=== PATIENT | female | born 1980 | race Caucasian/White ===

== ENCOUNTER 2023-05-11 17:17 | Emergency (ER) | payer OTHER, SELFPAY ==
[2023-05-11 17:47] VITALS: BP 132/84; PULSE 83; RESP 18; TEMP 36.8; O2SAT 97; BMI 32.6
--- NOTE | 2023-05-11 18:35 | CRLHL7_ITS ---
For Patients: As a result of the Century Cures Act, medical imaging exams and procedure reports are released immediately into your electronic medical record. You may view this report before your referring provider. If you have questions, please contact your health care provider. INDICATION: Cough, possible pneumonia. TECHNIQUE: CT of the chest without IV contrast. Coronal and sagittal reconstructions. COMPARISON: None. FINDINGS: Normal heart size. Normal caliber thoracic aorta and central pulmonary arteries. No pericardial effusion. No thoracic lymphadenopathy. The imaged thyroid gland is normal in appearance. There are nodular ground-glass opacities in the upper lobes and left lower lobe which are likely infectious or inflammatory. Mild diffuse bronchial wall thickening. No central endobronchial lesion. No dense consolidation. No pleural effusion or pneumothorax. 4 mm solid noncalcified pulmonary nodule in the anterior left upper lobe (series 3, image 26). Cholelithiasis. The visualized upper abdomen is otherwise unremarkable. Mild degenerative changes in the lower thoracic spine. Sclerotic lesion in the T9 vertebral body likely represents a bone island. IMPRESSION: 1. Bilateral nodular ground-glass opacities are likely infectious or inflammatory. Mild diffuse bronchial wall thickening. 2. 4 mm noncalcified pulmonary nodule in the left upper lobe. Please see follow-up guidelines below. 3. Cholelithiasis. [employer]LE[employer] GUIDELINES - SOLID NODULES: : SINGLE LOW RISK - nodule less than 6 mm: No routine follow-up. - nodule 6-8 mm: CT at 6-12 months, then consider CT at 18-24 months. - nodule greater than 8 mm: Consider CT at 3 months, PET/CT or tissue sampling. SINGLE HIGH RISK - nodule less than 6 mm: Optional CT at 12 months. - nodule 6-8 mm: CT at 6-12 months, then CT at 18-24 months. - nodule greater than 8 mm: Consider CT at 3 months, PET/CT or tissue sampling. Please note that all CT scans at this facility use dose modulation, iterative reconstruction, and/or weight-based dosing when appropriate to reduce radiation dose to as low as reasonably achievable. Dictated by Prudence Wilson MD @ 05/11/2023 8:03:18 PM (Electronically Signed)
--- NOTE | 2023-05-11 18:38 | ED_ITS ---
HPI - General Adult General Date Seen: 05/11/23 Chief complaint: Shortness of Breath/Dyspnea Stated complaint: pneumonia x3 weeks Time Seen by Provider: 05/11/23 18:22 Source: patient Mode of arrival: ambulatory Limitations: no limitations History of Present Illness HPI narrative: Patient is a 42-year-old female with no pertinent medical history for cough, chest pain, shortness of breath the past 3 weeks. She states 3 weeks of dizziness a diagnosis of pneumonia is started on antibiotic. She is not sure which antibiotic it was. Week ago she went to urgent care and was started on albuterol, prednisone, doxycycline. So week later notes symptoms are not getting better. She states she still coughing up green mucus in will cough so much it causes her to be incontinent of urine. States this does make it difficult for her to do her job. She has not been using any cough suppressants. Denies fevers, chills, abdominal pain, nausea, headache, vision changes, lightheadedness, dizziness. Does admit to some midsternal chest pain. Related Data Previous Rx's Medication Instructions Recorded dextromethorphan-benzocaine 5 2 sharath PO Q4H PRN #16 ea 05/11/23 mg-7.5 mg lozenges Allergies Allergy/AdvReac Type Severity Reaction Status Date / Time Penicillins Allergy Mild upset Verified 05/11/23 17:53 stomach Exam Const: Vital Signs, click to edit/add: Vital Signs - 24 hr 05/11/23 17:47 Temperature 98.2 F Pulse Rate [Pulse Oximeter] 83 Respiratory Rate 18 Blood Pressure [Ri ght Upper Arm] 132/84 Pulse Oximetry 97 Oxygen Delivery Me thod Room Air Course Vital Signs Vital signs: Initial Vital Signs Temperature 98.2 F 05/11/23 17:47 Temperature Source Temporal Artery Scan 05/11/23 17:47 Pulse Rate 83 05/11/23 17:47 Respiratory Rate 18 05/11/23 17:47 Blood Pressure 132/84 05/11/23 17:47 Blood Pressure Mean 100 05/11/23 17:47 Blood Pressure Position Sitting 05/11/23 17:47 Pulse Oximetry 97 05/11/23 17:47 Oxygen Delivery Method Room Air 05/11/23 17:47 Vital Signs Temperature 98.2 F 05/11/23 17:47 Pulse Rate 83 05/11/23 17:47 Respiratory Rate 18 05/11/23 17:47 Blood Pressure 132/84 05/11/23 17:47 Pulse Oximetry 97 05/11/23 17:47 Oxygen Delivery Method Room Air 05/11/23 17:47 Temperature 98.2 F 05/11/23 17:47 Pulse Rate 83 05/11/23 17:47 Respiratory Rate 18 05/11/23 17:47 Blood Pressure 132/84 05/11/23 17:47 Pulse Oximetry 97 05/11/23 17:47 Oxygen Delivery Method Room Air 05/11/23 17:47 Medical Decision Making MDM Narrative Medical decision making narrative: Patient is a 42-year-old female presented emergency department for a cough short ness of breath has been going on for about 3 weeks now. She has been told previously she had pneumonia week ago she had another x-ray shortness she still has pneumonia. She is on 2 different antibiotics, prednisone, breathing treatments on improvement in her symptoms. She states sometimes she coughs so much he causes incontinence. Just for better evaluation we will do a CT scan of her chest. She is PERC negative and symptoms are unlikely to be related to a pulmonary embolism. Also ordered BMP, CBC, troponin, echo versus flu. COVID and flu negative. BMP showed no concerning abnormalities. Troponin within normal limits. CBC did show an elevated white count of 15.6. This could be stress reaction versus infection. CT scan results showed what appeared to be infection versus inflammatory areas in her chest. Considering her history and coughing up green sputum this is most likely infectious in nature. We will put her on a stronger antibiotic and started on Levaquin. Patient also was given some cough suppressants. She will be discharged home and she is agreeable to this plan. Lab Data Labs: Lab Results 05/11/23 05/11/23 Range/Units 18:55 18:55 WBC 15.63 H (4.50-11.00) K/uL RBC 4.65 (4.00-5.20) m/uL Hgb 13.7 (12.0-16.0) gm/dL Hct 41.6 (33.0-51.0) % MCV 90 (80-100) fL MCH 30 (26-34) pg MCHC 33 (32-36) gm/dL RDW Coeff of Chadwick 12.0 (11.5-15.5) % Plt Count 546 H (140-440) K/uL Neut % (Auto) 66.9 (42.0-72.0) % Lymph % (Auto) 21.9 (20-44) % [place] % (Auto) 8.4 (0.0-11.0) % Eos % (Auto) 1.2 (0.0-7.0) % Baso % (Auto) 0.3 (0.0-3.0) % Neut # (Auto) 10.50 H (1.7-7.0) K/uL Lymph # (Auto) 3.40 H (0.90-2.90) K/uL [place] # (Auto) 1.30 H (0.00-0.90) K/UL Eos # (Auto) 0.20 (0.00-0.50) K/uL Baso # (Auto) 0.00 (0.00-0.30) K/uL Abs Immat Gran (auto) 0.20 (0.00-0.30) K/uL Imm/Tot Granulo (auto) 1.3 % Sodium 142 (135-149) mmol/L Potassium 3.9 (3.6-5.1) mmol/L Chloride 101 (96-114) mmol/L Carbon Dioxide 31 (20-32) mmol/L Anion Gap 10 (7-15) mEq/L BUN 24 (5-24) mg/dL Creatinine 0.8 (0.5-1.5) mg/dL Estimated Creat Clear 80.72 Estimated GFR 95 ml/min Glucose 116 H (60-115) mg/dL Calcium 10.3 (8.4-10.6) mg/dL Troponin I < 0.01 L Cancelled (0.01-0.04) ng/mL SARS-CoV-2 (PCR) Negative SARS-CoV-2 (Negative) Influenza Type A (PCR) Negative PCR FLU A (Negative) Influenza Type B (PCR) Negative PCR FLU B (Negative) Imaging Data CT scan - chest: Radiologist's impression: INDICATION: Cough, possible pneumonia. TECHNIQUE: CT of the chest without IV contrast. Coronal and sagittal reconstructions. COMPARISON: None. FINDINGS: Normal heart size. Normal caliber thoracic aorta and central pulmonary arteries. No pericardial effusion. No thoracic lymphadenopathy. The imaged thyroid gland is normal in appearance. There are nodular ground-glass opacities in the upper lobes and left lower lobe which are likely infectious or inflammatory. Mild diffuse bronchial wall thickening. No central endobronchial lesion. No dense consolidation. No pleural effusion or pneumothorax. 4 mm solid noncalcified pulmonary nodule in the anterior left upper lobe (series 3, image 26). Cholelithiasis. The visualized upper abdomen is otherwise unremarkable. Mild degenerative changes in the lower thoracic spine. Sclerotic lesion in the T9 vertebral body likely represents a bone island. IMPRESSION: 1. Bilateral nodular ground-glass opacities are likely infectious or inflammatory. Mild diffuse bronchial wall thickening. 2. 4 mm noncalcified pulmonary nodule in the left upper lobe. Please see follow-up guidelines below. 3. Cholelithiasis. [employer] GUIDELINES - SOLID NODULES: : SINGLE LOW RISK - nodule less than 6 mm: No routine follow-up. - nodule 6-8 mm: CT at 6-12 months, then consider CT at 18-24 months. - nodule greater than 8 mm: Consider CT at 3 months, PET/CT or tissue sampling. SINGLE HIGH RISK - nodule less than 6 mm: Optional CT at 12 months. - nodule 6-8 mm: CT at 6-12 months, then CT at 18-24 months. - nodule greater than 8 mm: Consider CT at 3 months, PET/CT or tissue sampling. Please note that all CT scans at this facility use dose modulation, iterative reconstruction, and/or weight-based dosing when appropriate to reduce radiation dose to as low as reasonably achievable. Dictated by Prudence Wilson MD @ 05/11/2023 8:03:18 PM Discharge Plan Discharge Clinical Impression: Pneumonia Qualifiers: Pneumonia type: due to unspecified organism Laterality: bilateral Lung location: unspecified part of lung Qualified Code(s): J18.9 - Pneumonia, unspecified organism Patient Disposition: Home, Self-Care Condition: Stable Instructions: Community Acquired Pneumonia (DC) Additional Instructions: The CT scan shows possible signs of pneumonia. Due to that I will put you on a stronger antibiotic. We will also give new medicine for your cough. I believe part of the reason your cough and some much is clear lungs are slowly healing. Follow-up with the primary care provider if symptoms persist. Your antibiotics to be at [facility]. Prescriptions: New dextromethorphan-benzocaine 5-7.5 mg lozenge 2 sharath PO Q4H PRNQty: 16 0RF Rx Instructions: dissolve 2nd lozenge after first; do not chew Follow Up/Referrals: Provider,Not a Local [Primary Care Provider] - Stand Alone Forms: [employer] Info Instructions
[2023-05-11 18:59] LABS: Basophils Percent Auto 0.3 % (0.0-3.0); Eosinophils Percent Auto 1.2 % (0.0-7.0); Hematocrit 41.6 % (33.0-51.0); Hemoglobin* 13.7 gm/dL (12.0-16.0); Immature Granulocytes Pct Auto 1.3 %; Lymphocytes Percent Auto 21.9 % (20-44); Mean Corpuscular HGB Conc 33 gm/dL (32-36); Mean Corpuscular Hemoglobin 30 pg (26-34); Mean Corpuscular Volume 90 fL (80-100); Monocytes Percent Auto 8.4 % (0.0-11.0); Neutrophils Percent Auto 66.9 % (42.0-72.0); Platelet Count* 546 K/uL (140-440); Red Blood Count 4.65 m/uL (4.00-5.20); White Blood Count* 15.63 K/uL (4.50-11.00)
[2023-05-11 19:01] LABS: Slide Review Reflex No
[2023-05-11 19:13] LABS: Chloride* 101 mmol/L (96-114); Potassium* 3.9 mmol/L (3.6-5.1); Sodium* 142 mmol/L (135-149)
[2023-05-11 19:16] LABS: Anion Gap 10 mEq/L (7-15); Blood Urea Nitrogen* 24 mg/dL (5-24); Carbon Dioxide* 31 mmol/L (20-32); Creatinine* 0.8 mg/dL (0.5-1.5); Est. Creatinine Clearance* 80.72; Estimated Glomerular Filt Rate 95 ml/min; Glucose* 116 mg/dL (60-115)
[2023-05-11 19:17] LABS: Calcium* 10.3 mg/dL (8.4-10.6)
[2023-05-11 19:33] LABS: Troponin I* < 0.01 ng/mL (0.01-0.04)
[2023-05-11 19:36] LABS: PCR FLU A Negative PCR FLU A (Negative); PCR FLU B Negative PCR FLU B (Negative)
[2023-05-11 19:42] LABS: SARS PCR* Negative SARS-CoV-2 (Negative)
== END 2023-05-11 20:27 | disposition home or self-care (01) ==
PROVIDERS: Emergency Provider Student in an Organized Health Care Education/Training Program
DX: J18.9 Pneumonia, unspecified organism (principal)
CPT/HCPCS: 36415; 71250; 80048; 84484; 85025; 87631; 93005; 99283; 99284; 99285

== ENCOUNTER 2023-11-17 08:56 | Emergency (ER) | payer OTHER, SELFPAY ==
[2023-11-17 09:00] VITALS: BP 159/100; PULSE 70; RESP 20; TEMP 35.5; O2SAT 99; BMI 33.5
--- NOTE | 2023-11-17 09:41 | ED.GENADULT ---
HPI - General Adult General Date Seen: 11/17/23 Chief complaint: Abdominal Pain Stated complaint: poss kidney stones Time Seen by Provider: 11/17/23 09:36 History of Present Illness HPI narrative: 43-year-old female with history of kidney stones presenting to the ER today with left lower quadrant radiating to her low back. Pain began last night. Hip pain got worse this morning. She took an oxycodone (or possibly hydrocodone?) that she had at home at about 730 but has not helped her pain. Also noted some darkish color of her urine (devi colored) that may have been hematuria. She has a history of previous kidney stones and did require lithotripsy for 1 of them. She has also had uterine ablation (so does not get menstrual cycle). Her symptoms began overnight last night and have gotten dramatically worse this morning. She took pain meds but they are not helping. She is having increasing flares and waves of pain. They are mostly in the left pelvis but a little bit to the left flank. No other symptoms. No dysuria or urgency or frequency. No fever or chills. She does not think she is but did not get a menstrual cycle because of the uterine ablation. No pain radiating down her leg. She vomited once (nonbloody) after she arrived here in the ER, because of severe pain. Related Data Home Medications Medication Instructions Recorded Confirmed Viibryd 11/17/23 Vyvanse 11/17/23 doxycycline 11/17/23 lamotrigine 11/17/23 Previous Rx's Medication Instructions Recorded dextromethorphan-benzocaine 5 2 sharath PO Q4H PRN #16 ea 05/11/23 mg-7.5 mg lozenges tamsulosin 0.4 mg capsule (Flomax) 0.4 mg PO DAILY #7 caps 11/17/23 Allergies Allergy/AdvReac Type Severity Reaction Status Date / Time Penicillins Allergy Mild upset Verified 05/11/23 17:53 stomach PFSH PFSH Social History Smoking Status: Unknown if ever smoked Do you use any of these nicotine containing products: None How often do you have a drink containing alcohol: never How often do you have six or more drinks on one occasion: Never AUDIT-C Alcohol total score: 0 Non-prescribed substance use: denies use Exam Narrative: Exam Narrative: Constitutional: Appears well-developed and well-nourished. Alert. Initially very uncomfortable, doubled over on the bed writhing in pain. She had vomited (clear emesis) due to pain. Recheck after pain meds, she is resting in bed is conversant. Non toxic. HENT: Head: Atraumatic. Nose: Nose normal. Mouth/Throat: Oral mucosa is clear and moist. no trismus. Eyes: Conjunctivae normal. EOM normal. Pupils equal, round, and reactive to light. No scleral icterus. Neck: Normal range of motion. Neck supple. No tracheal deviation present. Cardiovascular: Normal rate, regular rhythm. No gallop. No friction rub. No murmur heard. Pulmonary/Chest: Effort normal. No stridor. No respiratory distress. No wheezes. No rales. No rhonchi . No tenderness. Abdominal: Soft. No distension. No mass. Left lower quadrant and mild left CVA tenderness. No rebound. No guarding. Musculoskeletal: RUE: Normal range of motion. No tenderness. No deformity LUE: Normal range of motion. No tenderness. No deformity RLE: Normal range of motion. No edema. No tenderness. No deformity LLE: Normal range of motion. No edema. No tenderness. No deformity Neurological: Alert and oriented to person, place, and time. Normal strength. CN II-VII intact. No sensory deficit. GCS eye subscore is 4. GCS verbal subscore is 5. GCS motor subscore is 6. Normal coordination Skin: Skin is warm and dry. No rash noted. No pallor. Normal capillary refill. Psychiatric: Normal mood. Normal affect. Const: Vital Signs, click to edit/add: Vital Signs - 24 hr 11/17/23 09:00 11/17/23 11:30 Temperature 96 F L Pulse Rate [Pulse Oximeter] 70 67 Respiratory Rate 20 18 Blood Pressure [Ri ght Upper Arm] 159/100 H 151/98 H Pulse Oximetry 99 96 Oxygen Delivery Me thod Room Air Room Air Course Course ED Course: Recheck-pain much improved. Offered more pain medication, which she declines. She feels like her pain is adequately controlled for now. Vital Signs Vital signs: Initial Vital Signs Temperature 96 F L 11/17/23 09:00 Temperature Source Temporal Artery Scan 11/17/23 09:00 Pulse Rate 70 11/17/23 09:00 Respiratory Rate 20 11/17/23 09:00 Blood Pressure 159/100 H 11/17/23 09:00 Blood Pressure Mean 119 H 11/17/23 09:00 Blood Pressure Position Sitting 11/17/23 09:00 Pulse Oximetry 99 11/17/23 09:00 Oxygen Delivery Method Room Air 11/17/23 09:00 Vital Signs Temperature 96 F L 11/17/23 09:00 Pulse Rate 70 11/17/23 09:00 Respiratory Rate 20 11/17/23 09:00 Blood Pressure 159/100 H 11/17/23 09:00 Pulse Oximetry 99 11/17/23 09:00 Oxygen Delivery Method Room Air 11/17/23 09:00 Temperature 96 F L 11/17/23 09:00 Pulse Rate 67 11/17/23 11:30 Respiratory Rate 18 11/17/23 11:30 Blood Pressure 151/98 H 11/17/23 11:30 Pulse Oximetry 96 11/17/23 11:30 Oxygen Delivery Method Room Air 11/17/23 11:30 Medications Administered Medications: Generic Name Dose Route Start Last Admin Trade Name Freq PRN Reason Stop Dose Admin Hydromorphone HCl 0.5 mg 11/17/23 09:47 11/17/23 11:06 Hydromorphone 0.5 Mg/0.5 Ml Inj IVP 0.5 mg Q1H PRN Administration Pain Discontinued Medications Generic Name Dose Route Start Last Admin Trade Name Freq PRN Reason Stop Dose Admin Hydromorphone HCl 1 mg 11/17/23 09:47 11/17/23 10:00 Hydromorphone 0.5 Mg/0.5 Ml Inj IVP 11/17/23 09:48 1 mg ONCE ONE Administration Ketorolac Tromethamine 15 mg 11/17/23 09:42 11/17/23 09:52 Ketorolac 15 Mg/Ml Inj IVP 11/17/23 09:43 15 mg ONCE ONE Administration Ondansetron HCl 4 mg 11/17/23 09:42 11/17/23 09:54 Ondansetron 2 Mg/Ml Inj IVP 11/17/23 09:43 Not Given ONCE ONE Medical Decision Making [facility] Narrative Medical decision making narrative: This patient presents with left lower quadrant and left flank pain. Differential Diagnosis considered includes: Ureterolithiasis, UTI, pyelonephritis, AAA, colitis, diverticulitis, volvulus, appendicitis, cholecystitis, ovarian pathology, complication,, among others. At this point, the evaluation indicates that ureterolithiasis is the cause of the patient's symptoms. She has a 3.6 mm left UVJ kidney stone with associated hydronephrosis and hematuria. There are no signs that this is an infected stone. The patient's pain is controlled in ED. The patient is hemodynamically stable in ED. I think the patient is safe for discharge. The plan is discharge to home with recheck by primary care physician or urology.They will return to the ED right away if symptoms worsen (e.g Return immediately for fevers greater than 102, increasing pain, other new symptoms develop). Ureterolithiasis precautions for home. Prescriptions for pain control, nausea control, and flomax were provided. The patient's questions were answered. [facility] prescriptions for Percocet-12 tablets, Zofran ODT. Prescription to [facility] for Flomax. Lab Data Labs: Lab Results 11/17/23 11/17/23 Range/Units 09:23 09:30 WBC 11.05 H (4.50-11.00) K/uL RBC 4.54 (4.00-5.20) m/uL Hgb 13.4 (12.0-16.0) gm/dL Hct 40.4 (33.0-51.0) % MCV 89 (80-100) fL MCH 30 (26-34) pg MCHC 33 (32-36) gm/dL RDW Coeff of Chadwick 11.8 (11.5-15.5) % Plt Count 422 (140-440) K/uL Neut % (Auto) 78.7 H (42.0-72.0) % Lymph % (Auto) 13.9 L (20-44) % [place] % (Auto) 6.0 (0.0-11.0) % Eos % (Auto) 0.8 (0.0-7.0) % Baso % (Auto) 0.4 (0.0-3.0) % Neut # (Auto) 8.70 H (1.7-7.0) K/uL Lymph # (Auto) 1.50 (0.90-2.90) K/uL [place] # (Auto) 0.70 (0.00-0.90) K/UL Eos # (Auto) 0.10 (0.00-0.50) K/uL Baso # (Auto) 0.00 (0.00-0.30) K/uL Abs Immat Gran (auto) 0.00 (0.00-0.30) K/uL Imm/Tot Granulo (auto) 0.2 % Sodium 139 (135-149) mmol/L Potassium 3.7 (3.6-5.1) mmol/L Chloride 105 (96-114) mmol/L Carbon Dioxide 24 (20-32) mmol/L Anion Gap 10 (7-15) mEq/L BUN 21 (5-24) mg/dL Creatinine 0.8 (0.5-1.5) mg/dL Estimated Creat Clear 79.91 Estimated GFR 95 ml/min Glucose 137 H (60-115) mg/dL Calcium 9.4 (8.4-10.6) mg/dL Urine Color Yellow (Yellow) Urine Appearance Cloudy A (Clear) Urine pH 7.0 (5.0-8.5) Ur Specific [place] 1.025 (1.000-1.030) Urine Protein 1+ A (Negative) Urine Glucose (UA) Negative (Negative) Urine Ketones 2+ A (Negative) Urine Blood 3+ A (Negative) Urine Nitrite Negative (Negative) Urine Bilirubin Negative (Negative) Urine Urobilinogen 0.2 (0.2-1.0) Ur Leukocyte Esterase Negative (Negative) Urine RBC 50-100 A (0-2) Urine WBC 2-5 (0-5) Ur Squamous Epith Cells Many A (None-Few) Urine Bacteria None (None) Urine Mucus Moderate A (None) Urine HCG, Qual Negative (Negative) Imaging Data CT scan - abdomen: Attestation: I have reviewed the pertinent imaging results. Radiologist's impression: IMPRESSION: 1. No intrarenal calculi on either side. Left-sided obstructive uropathy due to a calcified calculus at the left ureterovesical junction measuring 3.6 millimeters. 2. Hepatic steatosis. 3. Cholelithiasis without CT findings of acute cholecystitis or common duct obstruction. Discharge Plan Discharge Clinical Impression: Kidney stone Patient Disposition: Home, Self-Care Condition: Stable Instructions: Kidney Stones (ED) Additional Instructions: As we discussed, to manage the pain from her kidney stone, start with ibuprofen 600 mg 3 times daily as needed. Add the prescription pain killer (Percocet) for pain uncontrolled by ibuprofen. Use caution with Percocet because it causes drowsiness, dizziness, constipation, and can be addictive. Use Flomax once daily to help relax the muscles in the ureter where your kidney stone is stuck. Return to the ER right away if you have any problems, especially uncontrolled pain, fever chills, uncontrolled nausea or vomiting or dehydration, or any concerns. It will probably take a few days for your kidney stone to pass. Please recheck with your regular doctor if your stone has not passed by next Thursday. Alternatively, you can call a urology clinic such as [facility] at [phone] want to schedule a follow-up appointment. Prescriptions: New tamsulosin [Flomax] 0.4 mg capsule 0.4 mg PO DAILY Qty: 7 2RF No Action dextromethorphan-benzocaine 5-7.5 mg lozenge 2 sharath PO Q4H PRNQty: 16 0RF Rx Instructions: dissolve 2nd lozenge after first; do not chew Vyvanse lamotrigine doxycycline Viibryd Follow Up/Referrals: Provider,Not a Local [Primary Care Provider] - Stand Alone Forms: [employer] Info Instructions
--- NOTE | 2023-11-17 09:42 | CT_ITS ---
Patient: CINDY OSCAR Facility:?[facility] Patient ID:?[id number] Site Patient ID:?[id number]. Site :?[id number] Study:?CT-Abdomen/Pelvis WITHOUT-11/17/2023 10:15:12 AM Ordering Physician:?DR. TORRES Final Report: INDICATION: Left-sided pain. History of urolithiasis. COMPARISON: None TECHNIQUE: CT examination of the abdomen and pelvis was performed without intravenous contrast. Thin section axial images were obtained from the lung bases through the pubic symphysis. Oral contrast was not administered. Please note that all CT scans at this facility use dose modulation, iterative reconstruction, and/or weight-based dosing when appropriate to reduce radiation dose to as low as reasonably achievable. FINDINGS: LUNG BASES: The lung bases as visualized appear normal.The heart size is normal at the lung bases. LIVER/BILIARY SYSTEM:Hepatic steatosis. Sparing at the gallbladder fossa. Cholelithiasis without CT indication of acute cholecystitis or common duct obstruction. ADRENALS: Normal non-contrast appearance KIDNEYS, URETERS and BLADDER:No intrarenal calculi on either side. Left obstructive uropathy due to a calculus at the left ureterovesical junction measuring 3.6 millimeters. No calculi within the bladder. SPLEEN:Normal non-contrast appearance. PANCREAS: Normal non-contrast appearance. RETROPERITONEUM and MESENTERY: There is no mass, adenopathy or aortic aneurysm. GASTROINTESTINAL SYSTEM: There is no evidence of diverticulitis, colitis, mechanical obstruction, or appendicitis. The small bowel as visualized appears normal. PELVIS: No mass, adenopathy or free fluid. OSSEOUS STRUCTURES and ABDOMINAL WALL: There is an age-appropriate appearance of the osseous structures.No significant abdominal wall defect. OTHER: No free fluid or free air. IMPRESSION: 1. No intrarenal calculi on either side. Left-sided obstructive uropathy due to a calcified calculus at the left ureterovesical junction measuring 3.6 millimeters. 2. Hepatic steatosis. 3. Cholelithiasis without CT findings of acute cholecystitis or common duct obstruction. Please note that all CT scans at this facility use dose modulation, iterative reconstruction, and/or weight-based dosing when appropriate to reduce radiation dose to as low as reasonably achievable. Dictated by Eleazar Dang MD @ 11/17/2023 10:19:33 AM Signed by:?Eleazar Dang MD @11/17/2023 10:19:33 AM (Electronic Signature)
[2023-11-17 09:52] LABS: Appearance Urine Cloudy (Clear); Bilirubin Urine Negative (Negative); Blood Urine 3+ (Negative); Color Urine Yellow (Yellow); Glucose Urine Negative (Negative); Ketones Urine 2+ (Negative); Leukocyte Esterase Urine Negative (Negative); Nitrite Urine Negative (Negative); Protein Urine 1+ (Negative); Specific Gravity Urine 1.025 (1.000-1.030); Urobilinogen Urine 0.2 (0.2-1.0)
[2023-11-17 09:52] LABS: Basophils Percent Auto 0.4 % (0.0-3.0); Eosinophils Percent Auto 0.8 % (0.0-7.0); Hematocrit 40.4 % (33.0-51.0); Hemoglobin* 13.4 gm/dL (12.0-16.0); Immature Granulocytes Pct Auto 0.2 %; Lymphocytes Percent Auto 13.9 % (20-44); Mean Corpuscular HGB Conc 33 gm/dL (32-36); Mean Corpuscular Hemoglobin 30 pg (26-34); Mean Corpuscular Volume 89 fL (80-100); Neutrophils Percent Auto 78.7 % (42.0-72.0); Platelet Count* 422 K/uL (140-440); RDW Coefficient of Variation % 11.8 % (11.5-15.5); Red Blood Count 4.54 m/uL (4.00-5.20); White Blood Count* 11.05 K/uL (4.50-11.00)
[2023-11-17] MEDS: KETOROLAC 15 MG/ML inj IVP (09:52)
[2023-11-17 09:53] LABS: Ur HCG Qualitative* Negative (Negative)
[2023-11-17 09:53] LABS: Slide Review Reflex No
[2023-11-17] MEDS: HYDROmorphone 0.5 mg/0.5 ml inj 1 MG IVP (10:00)
--- OUTSIDE RECORDS SUMMARY | 2023-11-17 10:03 | XMS_ITS | Clinical Summary ---
[facility] Address [address] [place] [address] Care Team Providers Care Recruiter Name Role Phone Julieta Norris PA-C Primary Care Provider [phone] Source Comments You are receiving this document as you are listed as the primary care provider,follow-up provider, or the patient has been referred to you for consultation.This is in compliance with the Medicare and[facility] EHR Incentive Program,which states Providers who transition their patient to another setting of careor provider of care or refers their patient to another provider of care shouldprovide summary care record for each transition of care or referral. [facility] Allerg[facility] Active Allergy Reactions Criticality Noted Date Comments Amoxicillin-Pot Clavulanate Gastrointestinal,Earnest sea And Vomiting 07/14/2011 Erythromycin Headache 02/22/2021 Hydrocodone-Acetaminoph en Nausea And Vomiting 02/22/2021 Minocycline Other, see comments 08/01/2016 Skin issues, lumps. Penicillins Other, see comments 08/01/2016 headaches??? Medications Medication Sig Dispensed Refills Start Date End Date Status desvenlafaxine (PRISTIQ) 100 MG 24 hour release tablet Take 100 mg by mouth daily. Patient is taking 75 mg daily 12/26/2020 Active lamoTRIgine ER 200 MG TAKE 1 TABLET BY MOUTH EVERYDAY AT BEDTIME 12/26/2020 Active lamoTRIgine ER 25 MG Take 2 Tablets by mouth daily. 01/02/2021 Active VYVANSE 30 MG capsule TAKE 1 CAPSULE DAILY IN THE MORNING FILL IN 26 DAYS 01/31/2021 Active Multiple Vitamin (MULTIVITAMIN ADULT OR) multivitamin Active Cholecalciferol 125 MCG (5000 UT) cholecalciferol (vitamin D3) 125 mcg (5,000 unit) tablet TAKE 1 TABLET BY MOUTH EVERY DAY Active triamcinolone acetonide (KENALOG) 0.1 % creamIndications:I nfestation Apply topically two times daily as needed (Rash, itching). 80 g 1 03/31/2022 Active Active Problems Problem Noted Date Diagnosed Date ADHD (attention deficit hyperactivity disorder) 02/23/2021 Anxiety 02/23/2021 Immunizations Name Administration Dates Next Due 4vHPV (Gardasil) 05/17/2007,12/03/2006, 7 HepB Ped/Adol (0-18 yrs) 07/03/1998,01/17/1998,0 12/20/1997 Influenza IIV4 (Quadrivalent) 0.5mL (17109) 04/10,04/29/2019,04/20/2018 MMR 01/26/1995,01/03/1993 Tdap 08/07/2017,01/18/2016,09/13/2007 Family History Medical History Relation Name Comments Thyroid Disorder Mother Thyroid Disorder Maternal Aunt Thyroid Disorder Maternal Grandmother Thyroid Disorder Sister Relation Name Status Comments Father Alive Mother Alive Maternal Aunt Maternal Grandmother Sister Social History Tobacco Use Types Packs/Day Years Used Date Smoking Tobacco: Never Smokeless Tobacco: Never Alcohol Use Standard Drinks/Week Comments Yes 2 (1 standard drink = 0.6 oz pur e alcohol) occ Sex and Gender Information Value Date Recorded Sex Assigned at Not on file Gender Identity Not on file Sexual Orientation Not on file Last Filed Vital Signs Vital Sign Reading Time Taken Comments Blood Pressure 132/89 04/21/2022 5:22 PM CDT Pulse 75 04/21/2022 5:22 PM CDT Temperature 36.6 ??C (97.9 ??F) 08/01/2016 10:[address] Respiratory Rate 16 08/01/2016 10:47 AM CUSTOMER SUCCESS REPRESENTATIVE Oxygen Saturation - - Inhaled Oxygen Concentration - - Weight 88.5 kg (195 lb) 06/23/2023 3:12 PM CUSTOMER SUCCESS REPRESENTATIVE Height 162.6 cm (5' 4) 06/23/2023 3:12 PM CUSTOMER SUCCESS REPRESENTATIVE Body Mass Index 33.47 06/23/2023 3:12 PM CUSTOMER SUCCESS REPRESENTATIVE Plan of Treatment Health Maintenance Due Date Last Done Comments Hep C Screening (Preventive Services) 1982 Adult Preventive Visit 02/23/2023 02/23/2021 COVID-19 Vaccine (1 - 2022-2 4 season) 2023 Influenza (#1) 2023 04/21/2020, 04/29/2019, 04/20/2018 Cervical Cancer Screening 10/08/20252020 (Completed), 06/10/2016 (Completed) Diabetes Screening- (based o n age and BMI) 02/09/2026 02/09/2023, 02/23/2021 DTaP/Tdap/Td (4 - Tdap) 08/07/2027 08/07/20, 01/18/2016, 09/13/2007 Zoster/Shingles (1 of 2) 2032 HepB Completed 07/03/1998, 01/17/1998, 12/20/1997 HPV Vaccine Completed 05/17/2007, 12/03/2006, 10/05/2006 HIV Screening (Preventive Services) Completed 04/12/2013 HepA Aged Out No longer eligi ble based on patient's age to complete this topic Hib Aged Out No longer eligi ble based on patient's age to complete this topic IPV (Polio) Aged Out No longer eligi ble based on patient's age to complete this topic MCV4 Aged Out No longer eligi ble based on patient's age to complete this topic Pneumococcal Aged Out No longer eligi ble based on patient's age to complete this topic Procedures Procedure Name Priority Date/Time Associated Diagnosis Comments HGB A1C (EXTERNAL RESULT) Routine 02/09/2023 2:52 PM CDT from Last 3 Months or Most Recently Relevant to Health Maintenance Care Teams Recruiter Relationship Specialty Start Date End Date Julieta Norris, PA-C [address] [place] [address] PCP - General Physician Station Engineer Main Line 08/11/17
--- OUTSIDE RECORDS SUMMARY | 2023-11-17 10:03 | XMS_ITS | Data Portability ---
Author Name Unknown Address [address] [place] [address] Phone [phone] Organization [facility], [id number] Address [address] [place] [address] Assessment Encounter Date Assessment Date Assessment LastModified by Organization Details LastModified Time 02/19/2021 02/19/2021 I spent a total of 30 minutes providing care for this patient including: preparing to see the patient, obtaining a medical history, completing a medically appropriate physical exam, completing documentation of visit information and plans in the EMR, counseling the patient and/or caregiver regarding her diagnosis, treatment options and follow up plans, as well as any necessary communication of subsequent test results to the patient, walker Not available 02/19/2021 16:05:45 12/20/2021 12/20/2021 I spent a total of 30 minutes providing care for this patient including: preparing to see the patient, obtaining a medical history, completing a medically appropriate physical exam, completing documentation of visit information and plans in the EMR, counseling the patient and/or caregiver regarding her diagnosis, treatment options and follow up plans, as well as any necessary communication of subsequent test results to the patient [email or web address] Not available 12/20/2021 14:43:17 Plan of Treatment Reminders Order Date Submit Date Provider Last Modified By Organization Details Last Modified Time Details Appointments None recorded. Lab lipid panel, serum 2022 023 [facility], [address] [place] [address], [address], [place], [address], 21:30:26 TSH, serum or plasma 2022 023 [facility], [address], [address], [place], [address], 3 21:30:28 hemoglobin A1c, QN, blood 2022 023 [facility], [address], [address], [place], [address], 3 21:30:29 glucose, fasting, serum/plasm a [address], [address] [address], [address], [place], [address], 3 16:04:55 bacterial vaginosis + vaginitis panel, vaginal [address], [address] [address], [address], [place], [address], 3 08:45:59 CBC 2021 022 [facility], [address] , [place], [address], 2 09:12:28 TSH + free T4, serum 2021 022 [facility], [address], [place], [address], 2 09:12:28 genetic screen, unspecified specimen 2021 022 [facility], [address], [address], [place], [address], 2 14:21:02 Referral None recorded. Procedures None recorded. Surgeries hysteroscop y, with endometrial ablation (SURG) [address] [facility], [address], [address], [place], [address], 2 17:54:47 Imaging US, pelvis 2021 022 [email or web address] [address] [id number] en Page, [address] [place] [address] Drive, [address], [place], [address], 2 15:23:39 Medication Orders clobetasol 0.05 % topical cream 2023 024 [facility] [address] [facility], [address], [place], [address], 4 15:32:07 Patient TargetsNo targets recorded. Patient Instructions Encounter Date Encounter Id Patient Instructions Last Modified By Organization Details Last Modified Time 02/09/2023 [id number] - Encouraged breast self-awareness and monthly breast exams. - Calcium and vitamin D intake discussed. - Encouraged regular exercise. - Discussed cervical cancer screening guidelines. [email or web address] Not available 02/09/2023 15:26:29 11/26/[id number] - Encouraged breast self-awareness and monthly breast exams. - Calcium and vitamin D intake discussed. - Encouraged regular exercise. - Discussed cervical cancer screening guidelines. [email or web address] Not available 11/26/2021 09:23:26 02/19/2021 [id number] We discussed bir th control options including hormonal IUD? s, copper IUD, implantable bobbi, oral contraceptive pills, Depo-Provera, a progestin-only pill, vaginal rings, condoms and sterilization procedures including bilateral salpingectomy and vasectomy. The risks and benefits of each option where discussed with the patient. walker Not available 02/19/2021 16:07:41 11/02/2020 [id number] - Encouraged breast self-awareness and monthly breast exams. - Calcium and vitamin D intake discussed. - Encouraged regular exercise. - STI prevention & screening discussed. - Recommend HPV vaccine and discussed risks, benefits and indications. - Encouraged patient to establish care with a PCP to manage non-COLLAR STITCHER concerns if she does not already have one. - Discussed cervical cancer screening guidelines. [email or web address] Not available 11/02/2020 11:53:51 Reason for Referral None Reported. Results Created Date Observation Date Name Description Value Unit Range Abnormal Flag LastModifiedBy Organization Detail LastModifiedTime 09/14/19 21 09/14/2020 pregn wood test, urine Unknown Analyte negati ve Not Available [id number] en [address], [place], [address], 09/14/2020 17:18:54 02/20/20 21 02/19/2021 hemog lobin (Hb), finge rstic k, blood fingerstick hemoglobin 13.6 g/dL 12.0-1 5.0 Not Available [id number] en Page [address], [place], [address], 02/19/2021 13:03:53 11/27/19 22 11/27/2021 TSH+F REE T4 TSH 1.510 uIU/m L 0.450- 4.500 Not Available [facility] ([facility]) [address] [facility], [place], [address], 11/27/2021 09:12:28 11/27/19 22 11/27/2021 TSH+F REE T4 T4,free(dire ct) 1.11 NG/dL 0.82-1 .77 Not Available [facility] ([facility]) [address] [facility], [place], [address], 11/27/2021 09:12:28 11/27/19 22 11/26/2021 CBC, PLATE LET, NO DIFFE RENTI AL WBC 6.6 x10e3 /uL 3.4-10 .8 Not Available [address], [place], [address], 11/27/2021 09:12:28 11/27/19 22 11/26/2021 CBC, PLATE LET, NO DIFFE RENTI AL RBC 4.40 x10e6 /uL 3.77-5 .28 Not Available [address], [place], [address], 11/27/2021 09:12:28 11/27/19 22 11/26/2021 CBC, PLATE LET, NO DIFFE RENTI AL hemoglobin 12.9 g/dL 11.1-1 5.9 Not Available [address] [facility] [address], [place], [address], 11/27/2021 09:12:28 11/27/19 22 11/26/2021 CBC, PLATE LET, NO DIFFE RENTI AL hematocrit 39.4 % 34.0-4 6.6 Not Available [address], [place], [address], 11/27/2021 09:12:28 11/27/19 22 11/26/2021 CBC, PLATE LET, NO DIFFE RENTI AL MCV 90 fL 79-97 Not Available [address], [place], [address], 11/27/2021 09:12:28 11/27/19 22 11/26/2021 CBC, PLATE LET, NO DIFFE RENTI AL MCH 29.3 pg 26.6-3 3.0 Not Available [address], [place], [address], 11/27/2021 09:12:28 11/27/19 22 11/26/2021 CBC, PLATE LET, NO DIFFE RENTI AL MCHC 32.7 g/dL 31.5-3 5.7 Not Available [address], [place], [address], 11/27/2021 09:12:28 11/27/19 22 11/26/2021 CBC, PLATE LET, NO DIFFE RENTI AL RDW 12.5 % 11.7-1 5.4 Not Available [address], [place], [address], 11/27/2021 09:12:28 11/27/19 22 11/26/2021 CBC, PLATE LET, NO DIFFE RENTI AL platelets 410 x10e3 /uL 150-45 0 Not Available [address], [place], [address], 11/27/2021 09:12:28 11/27/19 22 11/26/2021 CBC, PLATE LET, 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 [address], [place], [address], 11/27/2021 09:12:28 11/27/19 22 11/26/2021 EMPOW ER report summary negati ve normal Not Available [facility] [address], [place], [address], 12/08/2021 00:40:19 11/27/19 22 11/26/2021 EMPOW ER footnotes see notes Not Available [facility] [address], [place], [address], 12/08/2021 00:40:19 02/10/20 23 02/09/2023 LIPID PANEL cholesterol 176 mg/dL <200 Not Available [address], [place], [address], 02/09/2023 21:30:26 02/10/20 23 02/09/2023 LIPID PANEL triglyceride s 131 mg/dL <150 Not Available [address], [place], [address], 02/09/2023 21:30:26 02/10/20 23 02/09/2023 LIPID PANEL direct measure HDL 48 mg/dL >=50 low Not Available [address], [place], [address], 02/09/2023 21:30:26 02/10/20 23 02/09/2023 LIPID PANEL LDL cholesterol calculated 102 mg/dL <=100 high Not Available [address], [place], [address], 02/09/2023 21:30:26 02/10/20 23 02/09/2023 LIPID PANEL non HDL cholesterol 128 mg/dL <130 Not Available [address], [place], [address], 02/09/2023 21:30:26 02/10/20 23 02/09/2023 TSH WITH REFLE X TO FREE T4 TSH 1.70 uIU/m L 0.30-4 .20 Not Available [address], [place], [address], 02/09/2023 21:30:28 02/10/20 23 02/09/2023 HEMOG LOBIN A1C hemoglobin A1C 5.7 % <5.7 high Not Available [address], [place], [address], 02/09/2023 21:30:29 02/10/20 23 02/09/2023 gluco se, fasti ng, serum /plas ma glucose 69 mg/dL 74-106 normal low Not Available [address] [place], [place], [address], 02/09/2023 15:50:07 02/12/20 23 02/11/2023 bacte rial vagin osis + vagin itis panel , vagin al bacterial vaginosis negati ve negati ve normal Not Available [address], [place], [address], 02/09/2023 15:44:37 02/12/20 23 02/11/2023 bacte rial vagin osis + vagin itis panel , vagin al jadyn group not detect ed negati ve normal Not Available [address] [address] [address], [place], [address], 02/09/2023 15:44:37 02/12/20 23 02/11/2023 bacte rial vagin osis + vagin itis panel , vagin al jadyn [email or web address] not detect ed negati ve normal Not Available [place] [address], [place], [address], 02/09/2023 15:44:37 02/12/20 23 02/11/2023 bacte rial vagin osis + vagin itis panel , vagin al trichomonas not detect ed negati ve normal Not Available [address] [place], [place] [address]A [facility] [address], [place], [address], 02/09/2023 15:44:37 12/07/19 22 12/06/2021 US, pelvi s No observ ation record ed. [facility] [address], [place], [address], 12/06/2021 15:15:14 03/05/20 23 03/04/2023 MAMMO , scree cheng, digit al, bilat eral, w/ CAD No observ ation record ed. [email or web address] [facility] [address], [place], [address], 03/05/2023 14:44:34 03/05/20 23 03/04/2023 MAMMO , scree cheng, bilat eral No observ ation record ed. [email or web address] [facility] [address], [place], [address], 03/05/2023 14:44:35 03/17/20 23 03/17/2023 US, jennifer [email or web address] No observ ation record ed. [email or web address] [facility] [place] [address], [place], [address], 03/17/2023 12:20:22 03/17/20 23 03/17/2023 US, breas t, unila teral No observ ation record ed. [email or web address] [facility] [place] [address], [place], [address], 03/18/2023 08:19:47 09/21/19 24 09/21/2023 US, breas t, unila teral No observ ation record ed. [facility] [address], [place], [address], 09/21/2023 15:28:27 09/21/19 24 09/21/2023 imagi ng/di agnos tic resul t No observ ation record ed. OSEI [facility] [address], [place], [address], 09/21/2023 16:11:56 Result Notes None recorded. Problems Name Status Onset Date Resolution Date Notes Provider Name and Address Organization Details Recorded Time Uses IUD (intrauterine device) contraception Completed 019 09/10/2020 Taryn vick, [place] - [facility] 09/10/2020 15:42:42 Uses IUD (intrauterine device) contraception Completed 018 05/18/2018 Taryn vick, [place] - [facility] 09/10/2020 15:42:42 Depressive disorder Active Not Available [facility] 03/15/2020 15:19:19 Attention deficit hyperactivity disorder Active 021 Taryn vick, [place] - [facility] 09/14/2020 17:18:28 Problem Notes None recorded. Procedures Surgical History Date Name Laterality Status Provider Name and Address Organization Details Recorded Time 09/21/19 24 Date of Last Mammogram completed Renate vick [place] - [facility] 09/21/2023 15:34:57 01/04/20 22 HYSTEROSCOPY, WITH ENDOMETRIAL ABLATION (SURG) completed Carole Pearce null [place] - [facility] 01/10/2022 14:16:58 07/23/20 21 total excision of bilateral fallopian tubes completed Shani Chowdhury null, [place] - [facility] 03/14/2021 13:01:20 09/14/19 21 IUD Removal & Insertion (same day) Procedure Note ([facility]) [place] [id number] [facility], [place], [address], [place] - [facility] 09/14/2020 17:49:58 10/14/19 20 Date of Last Pap Smear completed Taryn Alcantara null, [place] - [facility] 09/10/2020 15:42:57 10/06/19 18 spontaneous unassisted delivery, medical personnel present completed Not Available [facility] 03/15/2020 16:49:41 04/12/20 16 spontaneous unassisted delivery, medical personnel present completed Not Available [facility] 03/15/2020 16:49:41 Carpal tunnel surgery completed Taryn Alcantara null, [place] [facility] 11/26/2021 11:15:17 Tubal Ligation completed Brigitte padilla null, [place] - [facility] 02/09/2023 15:19:47 Imaging Results Imaging Date Name Status LastModified by Organiz ation Details LastModified Time 12/06/2021 US, pelvis completed [facility], [place], [address], 12/06/2021 15:15:14 03/04/2023 MAMMO, screening, digital, bilateral, w/ CAD completed [email or web address] [facility] [address], [place], [address], 03/05/2023 14:44:34 03/04/2023 MAMMO, screening, bilateral completed [email or web address] [facility] [address], [address], 03/05/2023 14:44:35 03/17/2023 US, breast, unilateral completed [email or web address] [facility] [place] [address], [place], [address], 03/17/2023 12:20:22 03/17/2023 US, breast, unilateral completed [email or web address] [facility] [place] [address], [place], [address], 03/18/2023 08:19:47 09/21/2023 US, breast, unilateral completed [email or web address] [facility] [address], [place], [address], 09/21/2023 15:28:27 09/21/2023 imaging/diagnos tic result completed [facility] [address], [place], [address], 09/21/2023 16:11:56 Procedure Notes None recorded. Medical Equipment None Reported. Allergies Allergen ID Allergen Name Allergen Category Reaction Reaction Severity Criticality Documentation Date Start Date Code Code System Note Provider Name and Address Organization Details Recorded Time 785020 Medicinal product containin g penicilli n and acting as antibacte rial agent (product) medicatio n nausea Not available Not available 03/15/2020 59457 05 SNOMED Hope Shittu null, [place] - [facility] 3 15:19:11 [id number] minocycli ne hydrochlo ride medicatio n Not available Not available Not available 03/15/2020 6979 RxNorm Not Available [facility] 0 14:57:43 [id number] minocycli ne medicatio n rash Not available Not available 02/19/2021 6980 RxNorm Hope Shittu null, [place] - [facility] 3 15:19:11 [id number] house dust allergeni c extract environme nt,medica tion other Not available Not available 02/09/2023 75567 9 RxNorm Hope Shittu null, [place] - [facility] 3 15:19:11 Medications Name Sig Start Date Stop Date Status Note LastModified by Organization Details LastModified Time glycopyrrol ate 1 mg tablet TAKE 1 TABLET BY MOUTH EVERY DAY active Not Available Not Available No t Available Mirena 21 mcg/24 hours (8 yrs) 52 mg intrauterin e device Take by intrauter ine route. 11/26 completed Not Available Not Available Not Available lamotrigine 150 mg tablet TAKE 1 TABLET BY MOUTH EVERY DAY 09/14 completed Not Available Not Available Not Available doxycycline hyclate 100 mg capsule TAKE 1 CAPSULE BY MOUTH 2 TIMES PER DAY FOR 7 DAYS 11/01 completed Not Available Not Available Not Available ipratropium 0.5 mg-albutero l 3 mg (2.5 mg base)/3 mL nebulizatio n soln INHALE 1 VIAL VIA NEBULIZER FOUR TIMES A DAY NEEDED 11/26 completed Not Available Not Available Not Available azithromyci n 250 mg tablet TAKE 2 TABLETS BY MOUTH TODAY, THEN TAKE 1 TABLET DAILY FOR 4 DAYS 11/01 completed Not Available Not Available Not Available fluconazole 150 mg tablet TAKE 1 TABLET BY MOUTH EVERY 72 HOURS FOR 2 DOSES 11/01 completed Not Available Not Available Not Available hydrocodone 5 mg-acetamin ophen 325 mg tablet TAKE 1-2 TABLETS BY MOUTH EVERY 4 HOURS NEEDED FOR PAIN. MAX OF 12 TABS PER 24 HOURS. 02/09 completed Not Available Not Available Not Available tretinoin 0.025 % topical cream APPLY TO FULL FACE AT NIGHT. START WITH A FEW NIGHTS WEEKLY AND WORK UP TOLERATED . 11/01 completed Not Available Not Available Not Available prednisone 20 mg tablet TAKE 2 TABLETS BY MOUTH DAILY FOR 5 DAYS 11/01 completed Not Available Not Available Not Available clobetasol 0.05 % topical cream APPLY THIN COAT TO AFFECTED AREA TWICE A DAY active Not Available Not Available No t Available metronidazo le 500 mg tablet Take 1 tablet by mouth twice a day for 7 days. Do not consume alcohol during and up to 1 days after use* 11/01 completed Not Available Not Available Not Available triamcinolo ne acetonide 0.1 % topical cream APPLY TOPICALLY TWO TIMES DAILY NEEDED (RASH, ITCHING). 11/01 completed Not Available Not Available Not Available lamotrigine 25 mg tablet TAKE ONE TABLET BY MOUTH DAILY FOR 2 WEEKS, THEN 2 DAILY FOR 2 WEEKS, THEN 4 DAILY. 09/14 completed Not Available Not Available Not Available tamsulosin 0.4 mg capsule TAKE 1 CAPSULE BY MOUTH EVERY DAY 02/08 completed Not Available Not Available Not Available benzonatate 100 mg capsule TAKE 2 CAPSULES BY MOUTH AT BEDTIME NEEDED SWALLOW CAPSULES WHOLE. KEEP OUT OF REACH OF CHILDREN 11/01 completed Not Available Not Available Not Available doxycycline monohydrate 100 mg capsule TAKE 1 CAPSULE BY MOUTH EVERY 12 HOURS WITH A GLASS OF WATER 11/01 completed Not Available Not Available Not Available cephalexin 500 mg capsule TAKE 1 CAPSULE BY MOUTH 2 TIMES DAILY X 14 DAYS 11/01 completed Not Available Not Available Not Available diclofenac sodium 25 mg tablet,kari yed release active Not Available Not Available Not Available gabapentin 300 mg capsule TAKE 1 CAPSULE TWICE DAILY NEEDED 02/09 completed Not Available Not Available Not Available budesonide 0.5 mg/2 mL suspension for nebulizatio n INHALE ONE VIAL VIA NEBULIZER TWICE A DAY 11/26 completed Not Available Not Available Not Available furosemide 20 mg tablet TAKE 1 TAB BY MOUTH TWO OR THREE DAYS PER WEEK NEEDED 02/08 completed Not Available Not Available Not Available clobetasol 0.05 % topical ointment PLEASE SEE ATTACHED FOR DETAILED DIRECTION S 02/09 completed Not Available Not Available Not Available levofloxaci n 500 mg tablet active Not Available Not Available Not Available methylpredn isolone 4 mg tablets in a dose pack TAKE 6 TABLETS BY MOUTH TODAY THEN DECREASE BY 1 TABLET DAILY UNTIL GONE. (TAKE WITH FOOD) 11/01 completed Not Available Not Available Not Available propranolol 20 mg tablet TAKE 1 TABLET BY MOUTH TWICE A DAY NEEDED 11/01 completed Not Available Not Available Not Available hydroxyzine HCl 10 mg tablet TAKE 1/2 TO 1 TABLETS UP TO 3 TIMES DAILY NEEDED FOR ANXIETY active Not Available Not Available No t Available cefdinir 300 mg capsule TAKE 1 CAPSULE BY MOUTH TWICE A DAY DIRECTED 11/01 completed Not Available Not Available Not Available metronidazo le 0.75 % topical gel APPLY TO SKIN TWICE A DAY - WASH AREA APPLY EVERY MORNING AND EVENING 11/01 completed Not Available Not Available Not Available oxycodone 5 mg tablet TAKE 1 TABLET (5 MG) BY MOUTH EVERY 6 HOURS NEEDED FOR PAIN 11/26 completed Not Available Not Available Not Available cyclobenzap rine 5 mg tablet TAKE 1 TABLET BY MOUTH EVERY DAY AT BEDTIME NEEDED FOR 15 DAYS active Not Available Not Available No t Available moxifloxaci n 0.5 % eye drops 1 DROP INTO AFFECTED EYE 3 TIMES A DAY FOR 7 DAYS 11/01 completed Not Available Not Available Not Available tinidazole 500 mg tablet TAKE 2 TABLET BY MOUTH DAILY IN A SINGLE DOSE WITH FOOD FOR 5 DAYS 11/01 completed Not Available Not Available Not Available Vitamin D3 11/26 completed Not Available Not Available Not Available multivitami n 02/08 completed Not Available Not Available Not Available Vyvanse 30 mg capsule TAKE 1 CAPSULE BY MOUTH EVERY DAY IN THE MORNING active Not Available Not Available No t Available Vyvanse 20 mg capsule TAKE 1 CAPSULE BY MOUTH EVERY DAY 02/09 completed Not Available Not Available Not Available Vyvanse 40 mg capsule TAKE 1 CAPSULE BY MOUTH EVERY DAY 02/09 completed Not Available Not Available Not Available desvenlafax ine succinate ER 50 mg tablet,exte nded release 24 hr TAKE 1 TABLET BY MOUTH EVERY DAY 11/01 completed Not Available Not Available Not Available desvenlafax ine succinate ER 100 mg tablet,exte nded release 24 hr TAKE 1 TABLET BY MOUTH EVERY DAY active Not Available Not Available No t Available lamotrigine ER 200 mg tablet,exte nded release 24 hr TAKE 1 TABLET BY MOUTH EVERYDAY AT BEDTIME active Not Available Not Available No t Available lamotrigine ER 25 mg tablet,exte nded release 24 hr TAKE 2 TABLETS BY MOUTH EVERY DAY 02/08 completed Not Available Not Available Not Available lamotrigine ER 100 mg tablet,exte nded release 24 hr TAKE 1 TABLET BY MOUTH EVERY DAY 11/02 completed Not Available Not Available Not Available cholecalcif delma (vitamin D3) 125 mcg (5,000 unit) tablet TAKE 1 TABLET BY MOUTH EVERY DAY active Not Available Not Available No t Available lamotrigine ER 50 mg tablet,exte nded release 24 hr TAKE ONE TABLET BY MOUTH DAILY WITH A 100MG TABLET FOR A TOTAL DAILY DOSE OF 150MG 11/25 completed Not Available Not Available Not Available vilazodone 20 mg tablet TAKE 1.5 TABLETS (30 MG) DAILY active Not Available Not Available No t Available vilazodone 10 mg tablet TAKE 1 TABLET BY MOUTH EVERY DAY 11/01 completed Not Available Not Available Not Available Vyvanse 10 mg capsule Take 1 capsule every day by oral route. 11/02 completed Not Available Not Available Not Available desvenlafax ine succinate ER 25 mg tablet,exte nded release 24 hr TAKE 1 TABLET DAILY 11/01 completed Not Available Not Available Not Available Fluzone Quad (PF) 60 mcg (15 mcg x 4)/0.5 mL IM syringe [facility]ARM[facility] 09/14 completed Not Available Not Available Not Available turmeric 100 mg-dima 150 mg-olive 50 mg-oreg 150 mg-capryl capsule Take by oral route. 11/25 completed Not Available Not Available Not Available Vitals Date Recorded Body height Body mass index (BMI) Body weight Systolic blood pressure Diastolic blood pressure Provider Name and Address Organization Details Last Updated DateTime 11/26/2021 162.56 cm 32.1 kg/m2 71718.77 g 140 mm[Hg] 80 mm[Hg] [place] TRAM DR[facility] 2 11:16:51 Date Recorded Body height Body mass index (BMI) Body weight Systolic blood pressure Diastolic blood pressure Provider Name and Address Organization Details Last Updated DateTime 12/06/2021 162.56 cm 31.8 kg/m2 24903.59 g 140 mm[Hg] 90 mm[Hg] [place] TRAM DR[facility] 2 14:56:58 Date Recorded Body height Body mass index (BMI) Body weight Systolic blood pressure Diastolic blood pressure Provider Name and Address Organization Details Last Updated DateTime 12/20/2021 162.56 cm 32.4 kg/m2 07609.96 g 136 mm[Hg] 86 mm[Hg] [place] TRAM DR[facility] 2 11:57:30 Date Recorded Body weight Systolic blood pressure Diastolic blood pressure Provider Name and Address Organization Details Last Updated DateTime 02/09/2023 59644.69 g 132 mm[Hg] 84 mm[Hg] [facility] Blas TRAM DRIVER 02/09/2023 15:24:35 Date Recorded Body height Body mass index (BMI) Body weight Systolic blood pressure Diastolic blood pressure Provider Name and Address Organization Details Last Updated DateTime 11/02/2023 162.56 cm 35.8 kg/m2 19680.09 g 122 mm[Hg] 82 mm[Hg] [place] - TRAM DRIVER 4 15:22:04 Date Recorded Body weight Body height Body mass index (BMI) Systolic blood pressure Diastolic blood pressure Provider Name and Address Organization Details Last Updated DateTime 06/03/2019 86287.91 978 g 162.56 cm 33.3 kg/m2 110 mm[Hg] 72 mm[Hg] Not Available [facility] 0 06:05:43 Date Recorded Body weight Body mass index (BMI) Body height Systolic blood pressure Diastolic blood pressure Provider Name and Address Organization Details Last Updated DateTime 02/15/2016 37301.67 0394 g 37.11 kg/m2 162.56 cm 102 mm[Hg] 64 mm[Hg] Not Available [facility] 0 06:05:41 Date Recorded Body mass index (BMI) Body height Body weight Systolic blood pressure Diastolic blood pressure Provider Name and Address Organization Details Last Updated DateTime 09/01/2017 39.07 kg/m2 162.56 cm 377774.6 42670 g 124 mm[Hg] 70 mm[Hg] Not Available [facility] 0 06:05:41 Date Recorded Body height Body mass index (BMI) Body weight Systolic blood pressure Diastolic blood pressure Provider Name and Address Organization Details Last Updated DateTime 11/23/2015 162.56 cm 33.51 kg/m2 18339.23 0624 g 133 mm[Hg] 88 mm[Hg] Not Available [facility] 0 06:05:40 Date Recorded Body mass index (BMI) Body height Body weight Systolic blood pressure Diastolic blood pressure Provider Name and Address Organization Details Last Updated DateTime 09/14/2015 30.66 kg/m2 162.56 cm 54523.59 7282 g 150 mm[Hg] 90 mm[Hg] Not Available [facility] 0 06:05:42 Date Recorded Body mass index (BMI) Body weight Body height Systolic blood pressure Diastolic blood pressure Provider Name and Address Organization Details Last Updated DateTime 08/24/2018 32.61 kg/m2 63687.55 03 g 162.56 cm 116 mm[Hg] 70 mm[Hg] Not Available [facility] 0 06:05:42 Date Recorded Body mass index (BMI) Body height Body weight Systolic blood pressure Diastolic blood pressure Provider Name and Address Organization Details Last Updated DateTime 09/22/2017 38.79 kg/m2 162.56 cm 355512.8 7562 g 124 mm[Hg] 86 mm[Hg] Not Available [facility] 0 06:05:43 Date Recorded Body mass index (BMI) Body weight Body height Systolic blood pressure Diastolic blood pressure Provider Name and Address Organization Details Last Updated DateTime 07/10/2017 38.48 kg/m2 397360.4 81625 g 162.56 cm 104 mm[Hg] 68 mm[Hg] Not Available [facility] 0 06:05:43 Date Recorded Body mass index (BMI) Body weight Body height Systolic blood pressure Diastolic blood pressure Provider Name and Address Organization Details Last Updated DateTime 10/21/2017 34.98 kg/m2 29566.12 5006 g 162.56 cm 114 mm[Hg] 70 mm[Hg] Not Available [facility] 0 06:05:41 Date Recorded Body mass index (BMI) Body weight Body height Systolic blood pressure Diastolic blood pressure Provider Name and Address Organization Details Last Updated DateTime 03/05/2018 32.27 kg/m2 14968.36 556 g 162.56 cm 120 mm[Hg] 84 mm[Hg] Not Available [facility] 0 06:05:44 Date Recorded Body weight Body mass index (BMI) Body height Systolic blood pressure Diastolic blood pressure Provider Name and Address Organization Details Last Updated DateTime 10/19/2015 31986.64 7086 g 32.24 kg/m2 162.56 cm 158 mm[Hg] 78 mm[Hg] Not Available [facility] 0 06:05:41 Date Recorded Body mass index (BMI) Body weight Body height Systolic blood pressure Diastolic blood pressure Provider Name and Address Organization Details Last Updated DateTime 12/21/2015 35.08 kg/m2 41036.28 0428 g 162.56 cm 122 mm[Hg] 70 mm[Hg] Not Available [facility] 0 06:05:41 Date Recorded Body mass index (BMI) Body weight Body height Systolic blood pressure Diastolic blood pressure Provider Name and Address Organization Details Last Updated DateTime 03/11/2016 37.97 kg/m2 920903.6 89315 g 162.56 cm 114 mm[Hg] 64 mm[Hg] Not Available [facility] 0 06:05:40 Date Recorded Body weight Body mass index (BMI) Body height Systolic blood pressure Diastolic blood pressure Provider Name and Address Organization Details Last Updated DateTime 04/16/2017 97986.28 0428 g 35.08 kg/m2 162.56 cm 126 mm[Hg] 86 mm[Hg] Not Available [facility] 0 06:05:40 Date Recorded Body mass index (BMI) Body weight Body height Systolic blood pressure Diastolic blood pressure Provider Name and Address Organization Details Last Updated DateTime 05/19/2016 33.64 kg/m2 79167.10 452 g 162.56 cm 122 mm[Hg] 80 mm[Hg] Not Available [facility] 0 06:05:43 Date Recorded Body mass index (BMI) Body weight Body height Systolic blood pressure Diastolic blood pressure Provider Name and Address Organization Details Last Updated DateTime 02/05/2018 32.85 kg/m2 85262.57 9618 g 162.56 cm 118 mm[Hg] 68 mm[Hg] Not Available [facility] 0 06:05:40 Date Recorded Body mass index (BMI) Body weight Body height Systolic blood pressure Diastolic blood pressure Provider Name and Address Organization Details Last Updated DateTime 04/08/2016 38.31 kg/m2 253312.8 37270 g 162.56 cm 124 mm[Hg] 88 mm[Hg] Not Available [facility] 0 06:05:43 Date Recorded Body weight Body mass index (BMI) Body height Systolic blood pressure Diastolic blood pressure Provider Name and Address Organization Details Last Updated DateTime 11/17/2017 21104.23 0624 g 33.51 kg/m2 162.56 cm 106 mm[Hg] 70 mm[Hg] Not Available [facility] 0 06:05:42 Date Recorded Body height Body weight Body mass index (BMI) Systolic blood pressure Diastolic blood pressure Provider Name and Address Organization Details Last Updated DateTime 03/24/2017 162.56 cm 21288.79 3676 g 33.44 kg/m2 102 mm[Hg] 72 mm[Hg] Not Available [facility] 0 06:05:40 Date Recorded Body mass index (BMI) Body height Body weight Systolic blood pressure Diastolic blood pressure Provider Name and Address Organization Details Last Updated DateTime 09/29/2017 39.07 kg/m2 162.56 cm 437391.6 77523 g 126 mm[Hg] 86 mm[Hg] Not Available [facility] 0 06:05:44 Date Recorded Body mass index (BMI) Body weight Body height Systolic blood pressure Diastolic blood pressure Provider Name and Address Organization Details Last Updated DateTime 08/07/2017 38.79 kg/m2 764403.8 7562 g 162.56 cm 118 mm[Hg] 72 mm[Hg] Not Available [facility] 0 06:05:43 Date Recorded Body height Body mass index (BMI) Body weight Systolic blood pressure Diastolic blood pressure Provider Name and Address Organization Details Last Updated DateTime 02/26/2016 162.56 cm 37.32 kg/m2 34857.98 1238 g 128 mm[Hg] 72 mm[Hg] Not Available [facility] 0 06:05:42 Date Recorded Body mass index (BMI) Body weight Body height Systolic blood pressure Diastolic blood pressure Provider Name and Address Organization Details Last Updated DateTime 02/01/2016 36.94 kg/m2 74914.07 8024 g 162.56 cm 134 mm[Hg] 70 mm[Hg] Not Available [facility] 0 06:05:41 Date Recorded Body weight Body mass index (BMI) Body height Systolic blood pressure Diastolic blood pressure Provider Name and Address Organization Details Last Updated DateTime 10/14/2019 30887.51 215 g 33.47 kg/m2 162.56 cm 120 mm[Hg] 70 mm[Hg] Not Available [facility] 0 06:05:41 Date Recorded Body mass index (BMI) Body weight Body height Systolic blood pressure Diastolic blood pressure Provider Name and Address Organization Details Last Updated DateTime 06/12/2015 30.04 kg/m2 97593.66 475 g 162.56 cm 106 mm[Hg] 64 mm[Hg] Not Available [facility] 0 06:05:41 Date Recorded Body weight Body mass index (BMI) Body height Systolic blood pressure Diastolic blood pressure Provider Name and Address Organization Details Last Updated DateTime 09/15/2017 988239.0 24120 g 38.9 kg/m2 162.56 cm 122 mm[Hg] 82 mm[Hg] Not Available [facility] 0 06:05:40 Date Recorded Body mass index (BMI) Body weight Body height Systolic blood pressure Diastolic blood pressure Provider Name and Address Organization Details Last Updated DateTime 08/31/2015 30.79 kg/m2 18479.47 1178 g 162.56 cm 108 mm[Hg] 62 mm[Hg] Not Available [facility] 0 06:05:43 Date Recorded Body mass index (BMI) Body height Body weight Systolic blood pressure Diastolic blood pressure Provider Name and Address Organization Details Last Updated DateTime 01/18/2016 35.63 kg/m2 162.56 cm 53871.77 6012 g 128 mm[Hg] 78 mm[Hg] Not Available [facility] 0 06:05:41 Date Recorded Body height Body weight Body mass index (BMI) Systolic blood pressure Diastolic blood pressure Provider Name and Address Organization Details Last Updated DateTime 10/06/2017 162.56 cm 915841.1 95854 g 39.86 kg/m2 152 mm[Hg] 96 mm[Hg] Not Available [facility] 0 06:05:42 Date Recorded Body weight Body mass index (BMI) Body height Systolic blood pressure Diastolic blood pressure Provider Name and Address Organization Details Last Updated DateTime 01/01/2018 94352.08 4034 g 32.3 kg/m2 162.56 cm 118 mm[Hg] 82 mm[Hg] Not Available [facility] 0 06:05:40 Date Recorded Body height Body mass index (BMI) Body weight Provider Name and Address Organization Details Last Updated DateTime 03/06/2017 162.56 cm 33.71 kg/m2 95747.5414 68 g Not Available [facility] 03/16/2020 06:05:43 Date Recorded Body mass index (BMI) Body weight Body height Systolic blood pressure Diastolic blood pressure Provider Name and Address Organization Details Last Updated DateTime 03/18/2016 38.14 kg/m2 997705.2 94825 g 162.56 cm 102 mm[Hg] 62 mm[Hg] Not Available [facility] 0 06:05:41 Date Recorded Body weight Body mass index (BMI) Body height Systolic blood pressure Diastolic blood pressure Provider Name and Address Organization Details Last Updated DateTime 06/02/2017 56546.67 0394 g 37.11 kg/m2 162.56 cm 124 mm[Hg] 68 mm[Hg] Not Available [facility] 0 06:05:44 Date Recorded Body weight Body mass index (BMI) Body height Systolic blood pressure Diastolic blood pressure Provider Name and Address Organization Details Last Updated DateTime 08/18/2017 621294.8 79477 g 38.55 kg/m2 162.56 cm 140 mm[Hg] 88 mm[Hg] Not Available [facility] 0 06:05:42 Date Recorded Body weight Body height Body mass index (BMI) Systolic blood pressure Diastolic blood pressure Provider Name and Address Organization Details Last Updated DateTime 05/12/2019 14655.14 267 g 162.56 cm 32.78 kg/m2 112 mm[Hg] 70 mm[Hg] Not Available [facility] 0 06:05:40 Date Recorded Body height Body weight Body mass index (BMI) Systolic blood pressure Diastolic blood pressure Provider Name and Address Organization Details Last Updated DateTime 02/09/2017 162.56 cm 73244.95 793 g 32.44 kg/m2 126 mm[Hg] 80 mm[Hg] Not Available [facility] 0 06:05:40 Date Recorded Body weight Body mass index (BMI) Body height Systolic blood pressure Diastolic blood pressure Provider Name and Address Organization Details Last Updated DateTime 04/09/2016 894199.5 01665 g 38.59 kg/m2 162.56 cm 140 mm[Hg] 98 mm[Hg] Not Available [facility] 0 06:05:41 Date Recorded Body weight Body mass index (BMI) Body height Systolic blood pressure Diastolic blood pressure Provider Name and Address Organization Details Last Updated DateTime 04/23/2018 49791.36 556 g 32.27 kg/m2 162.56 cm 124 mm[Hg] 86 mm[Hg] Not Available [facility] 0 06:05:40 Date Recorded Body mass index (BMI) Body height Body weight Systolic blood pressure Diastolic blood pressure Provider Name and Address Organization Details Last Updated DateTime 04/21/2017 35.05 kg/m2 162.56 cm 22335.56 1954 g 124 mm[Hg] 80 mm[Hg] Not Available [facility] 0 06:05:43 Date Recorded Body mass index (BMI) Body height Body weight Systolic blood pressure Diastolic blood pressure Provider Name and Address Organization Details Last Updated DateTime 03/25/2016 38.41 kg/m2 162.56 cm 245557.9 60018 g 120 mm[Hg] 80 mm[Hg] Not Available [facility] 0 06:05:40 Date Recorded Body mass index (BMI) Body height Body weight Systolic blood pressure Diastolic blood pressure Provider Name and Address Organization Details Last Updated DateTime 05/18/2018 32.24 kg/m2 162.56 cm 88759.64 7086 g 110 mm[Hg] 62 mm[Hg] Not Available [facility] 0 06:05:40 Date Recorded Body height Body mass index (BMI) Body weight Systolic blood pressure Diastolic blood pressure Provider Name and Address Organization Details Last Updated DateTime 09/14/2020 162.56 cm 35.7 kg/m2 90280.21 g 118 mm[Hg] 80 mm[Hg] RANDY Haynes [employer] 17:12:53 Date Recorded Body height Body mass index (BMI) Body weight Systolic blood pressure Diastolic blood pressure Provider Name and Address Organization Details Last Updated DateTime 11/02/2020 162.56 cm 34.5 kg/m2 19564.07 g 126 mm[Hg] 86 mm[Hg] Jamilah Raiabdi(T ERM) RANDY vick TR[employer] 11:07:42 Date Recorded Body height Body mass index (BMI) Body weight Systolic blood pressure Diastolic blood pressure Provider Name and Address Organization Details Last Updated DateTime 02/19/2021 162.56 cm 34.5 kg/m2 19076.07 g 112 mm[Hg] 70 mm[Hg] RANDY Haynes TR[employer] 13:00:29 Social History Question Answer Notes LastModified by Organizat ion Details LastModified Time Tobacco Smoking Status Never Smoker RANDY Haynes TR[employer] 09/10/2020 15:44:27 What Is Your Level Of Alcohol Consumption? Occasional Social [id number] Information not available 09/10/2020 What Is Your Level Of Caffeine Consumption? Moderate 1-2 Cup Of Coffee Information not available 02/09/2023 How Much Tobacco Do You Chew? None Information not available 02/09/2023 Are You Currently Employed? Yes Information not available 02/09/2023 What Type Of Diet Are You Following? REGULAR Information not available 02/09/2023 Do You Or Have You Ever Used E-cigarettes Or Vape? 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 [email or web address] Information not available 11/26/2021 Sex: Female Functional Status Question Answer Note LastModified by Organization D etails LastModified Time What is your exercise level? None Information not available 02/09/2023 Mental Status None recorded. Family History Relationship Description Onset Age of this Age Resolved Age Notes Paternal Grandfather Family history of prostate cancer Paternal Grandmother Family history of diabetes mellitus Paternal Grandmother Malignant tumor of pancreas 65 Maternal Grandfather Family history of diabetes mellitus Paternal Aunt Malignant tumor of breast 64 carries a gene mutation ?type then great aunt and cousin Medical History Condition Response Psych- Anxiety Disorder Y Psych- Depression Y ID- Chicken Pox/Shingles Y Urology- Stones Y Gynecological History Statement/Question Response Sexually Active Y History of Abnormal PAP N HPV Test Negative Date of Last Mammogram 09/21/2023 Date of LMP 12/20/2021 Y History of Sexually Transmitted Infectio n N HPV Vaccine Complete Current Control Method Tubal Ligat ion Date of Last Pap Smear 10/14/2019 12 Obstetrics History GPAL:G 2 P 2 0 0 2 Type Value Multiple Births 0 Full Term 2 Induced 0 Spontaneous 0 Premature 0 Living 2 Ectopics 0 Total 2 Immunizations Vaccine Type Date Status Provider Name a nd Address Organization Details Recorded Time Tdap 08/07/2017 completed Not Available [facility] 16:01:28 Tdap 01/18/2016 completed Not Available [facility] 16:01:28 Past Encounters Encounter ID Performer Location Encounter Start Date Encounter Closed Date Diagnosis/Indication Diagnosis SNOMED-CT Code [id number] RAHUL ROYAL MD [id number] [place] [facility] [employer] [place] [id number] 09/14/2020 16:51:14 09/14/2020 17:45:11 Depressive disorder 88517284 Replacemen t of intrauterine contraceptive device 90031210 [id number] RAHUL ROYAL MD [id number] [place] [facility] [employer],[address] [place] [id number] 11/02/2020 10:52:37 11/02/2020 11:55:10 Gynecologic examination 33171478 IUD check 344248383 Depressive disorder 3548 9007 [id number] RAHUL ROYAL MD [id number] [place] [facility] [employer],[address] [place] [id number] 02/19/2021 12:48:13 02/19/2021 14:34:57 Contraception care management 466540300 [id number] RAHUL ROYAL MD [id number] [place] [facility] [employer] [facility],[address] [place] [id number] 11/26/2021 10:59:26 11/26/2021 12:10:02 Gynecologic examination 35892248 Family his tory of breast cancer 441977076 Menorrhagia 477064624 Depressive disorder 3548 9007 [id number] RAHUL ROYAL MD [id number] [place] [facility] [employer],[address] [place] [id number] 12/06/2021 14:23:44 12/06/2021 17:33:30 Menorrhagia 517930730 [id number] RAHUL ROYAL MD [id number] [place] [facility] [employer] [facility],[address] [place] [id number] 12/06/2021 14:23:53 12/06/2021 15:23:38 Menorrhagia 486182912 [id number] RAHUL ROYAL MD [id number] [address] [facility],[address] [place] [id number] 12/20/2021 11:46:44 12/20/2021 12:11:34 Menorrhagia 227692147 Kidney stone 32198294 [id number] RAHUL ROYAL MD [id number] [id number] [facility],[address] [place] [id number] 02/09/2023 15:07:49 02/09/2023 15:59:05 Gynecologic examination 97406044 Depressive disorder 8723 5643 Family his tory of breast cancer 722260857 Acute vaginitis 74766862 [id number] RAHUL ROYAL MD [id number] [address] [facility],[address] [place] [id number] 11/02/2023 15:10:15 11/02/2023 16:32:10 Genital lichen sclerosus 955177774 Health Concerns Section Related Observation LastModified by Organization Detai ls LastModified Time None Recorded Concern Status LastModified by Organization Details LastModified Time None Recorded Advance Directives Directive None Recorded Payers Encounter Date Sequence Insurance Name Policy Number Policy Agarwal Covered Member ID Agarwal Member ID Guarantor Name 11/02/2023 1 [employer] [id number] Salim C Cabrera [id number] Taryn Rees 02/09/2023 1 [employer] [id number] Salim C Cabrera [id number] Taryn Rees 12/20/2021 1 [employer] [id number] Salim C Cabrera [id number] Taryn Rees 12/06/2021 1 [employer] [id number] Salim C Cabrera [id number] Taryn Rees 12/06/2021 1 [employer] [id number] Salim C Cabrera [id number] Taryn Rees 11/26/2021 1 [employer] [id number] Salim C Cabrera [id number] Taryn Rees 02/19/2021 1 [facility] [id number] [place] Cabrera [id number] Taryn Dela Cruz Cabrera 11/02/2020 1 [employer] [id number] [place] Cabrera [id number] Taryn Dela Cruz Cabrera 09/14/2020 1 [facility] [id number] [place] Cabrera [id number] Taryn Dela Cruz Cabrera Notes Date Note Type Note Provider Name and Address Organization Details Recorded Time 11/02/2020 text/html HPI Notes: Annua l Premenopausal ([facility]) Reported by patient. Patient Relationship To Practice: established patient Current Medical History: no active medical problems Relevant Family History: no family history of breast cancer; no family history of ovarian cancer; no family history of uterine cancer; no family history of colon cancer; no family history of blood clots/DVT Contraceptive Method: Current Method Used: levonorgestrel containing IUD--5 year; Mirena inserted 09/14/2020 Mammogram: Pap Smear +/- HPV Cotesting: up-to-date; 10/14/2019. Negative. HPV negative. Notes: Wt down 6 lbs since last here! The patient completed the familial health questionnaire. She is at low risk for a genetic cancer syndrome. Pt had Mirena IUD inserted 09/14/2020 and c/o significant bleeding after IC. Partner can feel strings. No pain. He felt strings with last IUD as well, [place] [id number], [place], [address], [facility] 11/02/2020 11:54:39 02/19/2021 text/html HPI Notes: Pre-O p ([facility]) Reported by patient. Procedure: Tuball ligation Procedure Date: 03/01/21 Surgeon: CL Reason for Procedure: pernament sterilization Pt here to disc risks/benefits for permanent sterilization. She is ready to be done. [place] not interested in anything permanent for him. Likes the menstrual control of mirena but [place] [id number], [place], [address], [facility] 02/19/2021 16:07:54 11/26/2021 text/html HPI Notes: Jim gooden Premenopausal ([facility]) Reported by patient. Patient Relationship To Practice: established patient Current Medical History: active medical problems stable Relevant Family History: family history of breast cancer; no family history of ovarian cancer; no family history of uterine cancer; no family history of colon cancer Menstrual History: Frequency of Menses: monthly; Quantity of Flow: heavy Contraceptive Method: satisfied: tubal sterilization Sexually Active: Yes: Health/Prevention: Exercise: no; Multivitamins: yes; Vitamin D: yes Notes: Wt down 14 lbs since last yr! Disc FH and doing EMPOWER. Menses regular and heavy, passes some clots. She is wondering about a novasure. Hereditary Cancer Risk Assessment HPI.Risk The patient completed the familial health questionnaire. She is at high risk for a genetic cancer syndrome. Breast cancer before the age of 51? no A known gene mutation in your family? Yes Three or more diagnoses of breast cancer on the same side of the family? Yes-extended family Breast or prostate cancer in 3 or more relatives on the same side of the family? Yes Imported from [place] on 11/26/2021 [place] [id number] [address], [place], [address], [place] [facility] 11/26/2021 13:37:21 12/06/2021 text/html HPI Notes: menorrhagia continues. Disc normal labs from last visit. Disc US findings from today. She wants to proceed with ablation. Disc anesthesia and recovery. Disc risks/benefits [place] [id number], [place], [address], [place] [facility] 12/06/2021 17:32:58 12/20/2021 text/html HPI Notes: went to [place] with the family last week. Dealing with kidney stone on her right, was in ER until 1:30 am. Has appt mon with urology Getting her menses today. Ready to move [place] [id number], [place], [address], [place] [facility] 12/20/2021 14:44:08 02/09/2023 text/html HPI Notes: Jim gooden Premenopausal ([facility]) Reported by patient. Patient Relationship To Practice: established patient Current Medical History: active medical problems stable Relevant Family History: family history of breast cancer; no family history of ovarian cancer; no family history of uterine cancer; no family history of colon cancer Menstrual History: Frequency of Menses: none Contraceptive Method: satisfied: tubal sterilization Sexually Active: Yes: Health/Prevention: Exercise: no; Multivitamins: yes; Vitamin D: yes Mammogram: due Pap Smear +/- HPV Cotesting: up-to-date; 10-14-2019 neg pap/HPV neg Thyroid/Lipid Screenin11-26-2021 Colonoscopy: not applicable Notes: Had hyst/D&C/ablation 12/29 and no bleeding since! Does get some hormone changes but no bleeding. Her in laws have been living with her for the past month and plan to be here for another few months which is stressful. She feels that she is getting start of yeast or BV infection. Having some itching. Headed to cabin later this weekend. Hereditary Cancer Risk Assessment HPI.Risk The patient completed the familial health questionnaire. She is at high risk for a genetic cancer syndrome. Breast or prostate cancer in 3 or more relatives on the same side of the family? Yes Imported from [facility] on 02/09/2023 [place] [id number] [facility],[address], [place], [address], [facility] 02/09/2023 16:54:45 11/02/2023 text/html HPI Notes: CUT O N LABIA pt states she has a cut on her labia for 2 months now. pt states it can come and go. pt has had laser hair removal, no cutting with a razor happened. jl/ma No hx of HPV, HSV or cold sores. No bleeding. Doesn't seem to be irritated with underwear. No bowel or bladder sx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
--- OUTSIDE RECORDS SUMMARY | 2023-11-17 10:03 | XMS_ITS | Referral Summary ---
Author Name Unknown Organization [facility] Address [address] [place] [address] Care Team Providers Care Pbx Technician Name Role Phone Unknown, Primary Care Provider Unavailabl e Social History Tobacco Use Types Packs/Day Years Used Date Smoking Tobacco: Never Assessed Sex and Gender Information Value Date Recorded Sex Assigned at Not on file Gender Identity Not on file Sexual Orientation Not on file Plan of Treatment Not on file Procedures Procedure Name Priority Date/Time Associated Diagnosis Comments PAP (DOPE HOUSE OPERATOR HELPER CYTOLOGY) Routine 10/14/2019 1: 34 PM CONTROL VALVE TECHNICIAN Encounter for gynecological examination (general) (routine) without abnormal findings from Last 3 Months or Most Recently Relevant to Health Maintenance Results * PAP TEST (DOPE HOUSE OPERATOR HELPER CYTOLOGY) (10/14/2019 1:34 PM CONTROL VALVE TECHNICIAN) Case Report Pap Smear ? Case: [id number] ? Authorizing Provider: ??Meagan Martinez MD ?Collected: ? 10/14/2019 01:34 PM ? Ordering Location: ? [facility] ?Received: ?10/17/2019 10:02 AM ? Hospital General ? Laboratory ? First Screen: ?Jessica, Мария Singh ? Pathologist: ? Janes Ybarra MD ? Specimen: ?Cervical Thin Prep with HPV Test Charge Nurse Screening, Cervix ? 10/19/2019 4:43 PM [facility] Interpretation Negative for intraepithelial lesion or malignant cells. 10/19/2019 4:43 PM [facility] Specimen Adequacy Satisfactory for evaluation. Endocervical/trans formation zone component present. 10/19/2019 4:43 PM [facility] Clinical Information IUD 10/19/2019 4:43 PM [facility] LMP 09/22/2019 10/19/2019 4:43 PM [facility] Pap Disclaimer This specimen was screened by the ThinPrep Imaging System prior to manual review by a wire mill operator and/or pathologist. The Pap test is a screening test and has an irreducible false-negative rate. Routine periodic testing and follow-up of unexplained clinical signs and symptoms are important to minimize the consequence of false-negative Pap tests. Sharron et al. 2012 Updated Consensus Guidelines for the Management of Abnormal Cervical Cancer Screening Tests and Cancer Precursors. J Low Genit Tract Dis 2013; 17 (5): S2-S27 10/19/2019 4:43 PM CDT [facility] Vaginal and cervical cytologic material (specimen) SPECIMEN / Unknown 10/14/2019 1:34 PM CONTROL VALVE TECHNICIAN 10/17/2019 10:02 AM CDT Meagan Martinez MD PATHOLOGY/CYTOLOGY ORDERABLE [facility] [address] [place] [address] from Last 3 Months or Most Recently Relevant to Health Maintenance Care Teams Pbx Technician Relationship Specialty Start Date End Date Unknown, NO ADDRESS/PHONE/FAX AFFILIATED PCP - General 08/30/21
--- OUTSIDE RECORDS SUMMARY | 2023-11-17 10:03 | XMS_ITS | Clinical Summary ---
Author Name Unknown Organization [facility] Address [place], [place] [address] Care Team Providers Care Line Assembly Utility Worker Name Role Phone Clinic, No Pcp Or Primary Care Provider Unavaila ble Allergies Active Allergy Reactions Criticality Noted Date Comments Amoxicillin-Pot Clavulanate GI Upset 07/14/20 11 Erythromycin Headache Hydrocodone-Acetaminophen Nausea And Vomiting Minocycline Hives Penicillins Headache Medications Medication Sig Dispensed Refills Start Date End Date Status citalopram (CELEXA) 10 mg tabletIndications:Anx iety and depression Take 1 tablet by mouth once daily. 30 tablet 1 06/28/2015 Active cholecalciferol (VITAMIN D) 1,000 unit tablet Take 1,000 Units by mouth. 08/01/2016 Active fenugreek seed extract 500 mg cap Dose unconfirmed. 08/01/2016 Active vitamin-folic acid 1 mg ( VITAMIN) tablet/capsule Take by mouth. 08/01/2016 Active Active Problems Problem Noted Date Diagnosed Date Depression with anxiety 06/12/2010 PMS (premenstrual syndrome) 06/12/2010 Immunizations Name Administration Dates Next Due Hepatitis B (Peds) 07/03/1998,01/17/1998, 998 Human Papilloma Virus Vaccine 05/17/2007, 007,10/05/2006 MMR 01/26/1995,01/03/1993 Tdap 09/13/2007 Family History Medical History Relation Name Comments Diabetes Maternal Grandfather Diabetes Maternal Grandmother Alcohol/Drug Mother Thyroid Disease Mother Diabetes Paternal Grandfather Diabetes Paternal Grandmother Thyroid Disease Sister Relation Name Status Comments Maternal Grandfather Maternal Grandmother Mother Paternal Grandfather Paternal Grandmother Sister Social History Tobacco Use Types Packs/Day Years Used Date Smoking Tobacco: Never Smokeless Tobacco: Never Alcohol Use Standard Drinks/Week Comments Yes 0 (1 standard drink = 0.6 oz pur e alcohol) socially 2/week Sex and Gender Information Value Date Recorded Sex Assigned at Not on file Gender Identity Not on file Sexual Orientation Not on file Obstetrics History Para Term AB IAB SAB Ectopic Multiple Livin g Live Births 0 0 0 0 0 0 0 0 0 0 Last Filed Vital Signs Vital Sign Reading Time Taken Comments Blood Pressure 137/89 05/07/2023 10:29 AM CDT Pulse 75 05/07/2023 10:29 AM CDT Temperature 36.6 ??C (97.8 ??F) 05/07/2023 10:29 AM C DT Respiratory Rate 12 05/07/2023 10:29 AM CDT Oxygen Saturation 96% 05/07/2023 10:29 AM CDT Inhaled Oxygen Concentration - - Weight 86.2 kg (190 lb) 05/07/2023 10:29 AM CDT Height 162.6 cm (5' 4) 05/07/2023 10:29 AM CDT Body Mass Index 32.61 05/07/2023 10:29 AM CDT Plan of Treatment Health Maintenance Due Date Last Done Comments Hepatitis C screening for age 18-79 2000 Tetanus booster 09/13/2017 09/13/2007 BMI (ht and wt on same day) for age 18+ 09/16/2017 09/16/2016 Depression screening for age 12+ 09/16/2017 09/16/2016 Pap test for age 21-65 05/21/2019 6 (Completed outside of [facility]), 07/25/2013, 05/24/2012, Additional history exists COVID-19 vaccine series ( season) 2023 Influenza for age 9-49 04/10/2024 Tdap Completed 09/13/2007 HIV for age 15-65 Completed 04/12/2013, 06/16/2011 Pneumococcal series for age 6-64 Aged Out No longer eligible based on patient's age to complete this topic Procedures Procedure Name Priority Date/Time Associated Diagnosis Comments FAMILY INTERVENTION SPECIALIST THIN PREP PAP SCREEN IMAGED Routine 07/25/2013 3:31 PM HEAD OF PARTNER DEVELOPMENT Screening for malignant neoplasm of the cervix ANTI HIV 1/2 Routine 04/12/2013 11:51 AM CDT Screen for STD (sexually transmitted disease) from Last 3 Months or Most Recently Relevant to Health Maintenance Results * FAMILY INTERVENTION SPECIALIST THIN PREP PAP SCREEN IMAGED (07/25/2013 3:31 PM HEAD OF PARTNER DEVELOPMENT) Pathologist [facility] CYTOLOGY CYTOPATHOLOGY REPORT [facility] Status: Final Status ?[id number] CLINICAL INFORMATION Last Date of LMP ? :07/10/2013 Last Pap Date ?:05/24/2012 Last Pap Result ?:NIL ABN Ulysses/Bx Past 5 YRS :None Hormone Usage ?:BCP/OCP/Patch/R ing Menstrual Status ? :Regular Periods Ulysses/Bx done today ? :No Additional Information :None given HPV Request ?:HPV if ASCUS SPECIMEN SOURCE ?:Cervical/vagina l ThinPrep Vial, screening SPECIMEN ADEQUACY ?:Satisfactory for evaluation Endocervical component ? present. INTERPRETATION/RES ULT Negative for intraepithelial lesion or malignancy (NIL) Cytology 1st Screener ??:lgb Cytology 2nd Screener ??:tll Signed by ?:tll This specimen was screened by the FDA approved ThinPrep Imaging System and manually reviewed. NOTE: ??The Pap test is a screening technique, not a diagnostic procedure. ??It is used ??primarily to screen for squamous cancers and precursor lesions. ??Published studies have shown that it is subject to both false negative and false positive results. ??The pap test should not be used as the sole means to diagnose or exclude pre-malignant and malignant lesions. COLLECTED:07/25/13 ? ACCESSIONED: ??07/26/13 ?? SIGNED: ??08/04/13 [facility] P[facility] [place] CODE NIL [facility] Tissue specimen (specimen) (Cervical/Vagina l) 07/25/2013 3:31 PM HEAD OF PARTNER DEVELOPMENT 07/25/2013 3:30 PM HEAD OF PARTNER DEVELOPMENT Stefanie Wray CNM PATHOLOGY/CYTOLOGY Performing Organization Address [facility]/ZIP Co de Phone Number [facility] INTERNAL ZIP [phone] [place] [address] * ANTI HIV 1/2 (04/12/2013 11:51 AM CDT) ANTI HIV 1/2 Non-reacti ve [facility] Blood specimen (specimen) BLOOD SPECIMEN / Unknown 04/12/2013 11:51 AM CDT 04/12/2013 11:50 AM CDT Patty HURT SEND OUTS [facility] INTERNAL ZIP [address] [place] [address] from Last 3 Months or Most Recently Relevant to Health Maintenance Care Teams Line Assembly Utility Worker Relationship Specialty Start Date End Date Clinic, No Pcp Or . PCP - General 09/02/21
--- OUTSIDE RECORDS SUMMARY | 2023-11-17 10:03 | XMS_ITS | Clinical Summary ---
Author Name Unknown Organization [facility] Address [address] [place] [address] Care Team Providers Care Noodle Catalyst Maker Name Role Phone Unknown, Primary Care Provider Unavailabl e Social History Tobacco Use Types Packs/Day Years Used Date Smoking Tobacco: Never Assessed Sex and Gender Information Value Date Recorded Sex Assigned at Not on file Gender Identity Not on file Sexual Orientation Not on file Plan of Treatment Health Maintenance Due Date Last Done Comments Hepatitis C Screening 1982 Lipid Screening 1982 Mammogram Screening 1982 Anxiety Screening (ZULEYKA-2) 1983 Depression Assessment (PHQ-2) 1983 Pap Smear 10/13/2022 10/14/2019, 05/19/2016 COVID-19 Vaccine (2022-2 4 season) 2023 Influenza Vaccine (Season Ended) 2024 04/21/2020, 04/29/2019, 04/20/2018 Adult Tetanus Booster 08/07/2027 08/07/2017 , 01/18/2016, 09/13/2007 Pneumococcal <65 Aged Out No longer e ligible based on patient's age to complete this topic Procedures Procedure Name Priority Date/Time Associated Diagnosis Comments PAP (3D DESIGNER CYTOLOGY) Routine 10/14/2019 1: 34 PM FAMILY LIFE COUNSELOR Encounter for gynecological examination (general) (routine) without abnormal findings from Last 3 Months or Most Recently Relevant to Health Maintenance Results * PAP TEST (3D DESIGNER CYTOLOGY) (10/14/2019 1:34 PM FAMILY LIFE COUNSELOR) Case Report Pap Smear ? Case: [id number] ? Authorizing Provider: ??Meagan Martinez MD ?Collected: ? 10/14/2019 01:34 PM ? Ordering Location: ? [facility] ?Received: ?10/17/2019 10:02 AM ? Hospital General ? Laboratory ? First Screen: ?Jessica, Мария D ? Pathologist: ? Tate, Janes N., MD ? Specimen: ?Cervical Thin Prep with HPV Test Dry Wall Finisher Screening, Cervix ? 10/19/2019 4:43 PM CDT [facility] Interpretation Negative for intraepithelial lesion or malignant cells. 10/19/2019 4:43 PM CDT [facility] Specimen Adequacy Satisfactory for evaluation. Endocervical/trans formation zone component present. 10/19/2019 4:43 PM CDT [facility] Clinical Information IUD 10/19/2019 4:43 PM CDT [facility] LMP 09/22/2019 10/19/2019 4:43 PM CDT [facility] Pap Disclaimer This specimen was screened by the MedAptusPrep Imaging System prior to manual review by a mammal keeper and/or pathologist. The Pap test is a screening test and has an irreducible false-negative rate. Routine periodic testing and follow-up of unexplained clinical signs and symptoms are important to minimize the consequence of false-negative Pap tests. Massad et al. 2012 Updated Consensus Guidelines for the Management of Abnormal Cervical Cancer Screening Tests and Cancer Precursors. J Low Genit Tract Dis 2013; 17 (5): S2-S27 10/19/2019 4:43 PM CDT [facility] Vaginal and cervical cytologic material (specimen) SPECIMEN / Unknown 10/14/2019 1:34 PM FAMILY LIFE COUNSELOR 10/17/2019 10:02 AM CDT Meagan Martinez MD PATHOLOGY/CYTOLOGY ORDERABLE [facility] [address] [place], [place] [address] from Last 3 Months or Most Recently Relevant to Health Maintenance Care Teams Noodle Catalyst Maker Relationship Specialty Start Date End Date Unknown, NO ADDRESS/PHONE/FAX AFFILIATED PCP - General 08/30/21
--- OUTSIDE RECORDS SUMMARY | 2023-11-17 10:04 | XMS_ITS | Continuity of Care Document ---
Author Name Unknown Address [address] [place] [address] Phone [phone] Organization [facility], [id number] [place] Address [address] [facility] [address] [place] [address] Assessment No assessment recorded. Plan of Treatment Reminders Order Date Submit Date Provider Last Modified By Organization Details Last Modified Time Details Appointments None recorded. Lab None recorded. Referral None recorded. Procedures None recorded. Surgeries None recorded. Imaging None recorded. Medication Orders clobetasol 0.05 % topical cream 2023 024 [facility] [id number] [facility] [employer], [address] [place], [place], [address], 15:32:07 Patient TargetsNo targets recorded. Patient InstructionsNo instructions recorded. Reason for Referral None Reported. Problems Name Status Onset Date Resolution Date Notes Provider Name and Address Organization Details Recorded Time Uses IUD (intrauterine device) contraception Completed 019 09/10/2020 [facility] 09/10/2020 15:42:42 Uses IUD (intrauterine device) contraception Completed 018 05/18/2018 [facility] 09/10/2020 15:42:42 Depressive disorder Active 018 Not Available [facility] 03/15/2020 15:19:19 Attention deficit hyperactivity disorder Active 021 [facility] 09/14/2020 17:18:28 Problem Notes None recorded. Procedures Surgical History Date Name Laterality Status Provider Name and Address Organization Details Recorded Time 09/21/19 24 Date of Last Mammogram completed Renate Crenshaw null, [place] [facility] 09/21/2023 15:34:57 01/04/20 22 HYSTEROSCOPY, WITH ENDOMETRIAL ABLATION (SURG) completed Carole Portia null, [facility] 01/10/2022 14:16:58 03/01/20 21 total excision of bilateral fallopian tubes completed Shani Chowdhury null, [facility] 03/14/2021 13:01:20 09/14/19 21 IUD Removal & Insertion (same day) Procedure Note ([facility]) [place] [address] [facility],[address], [place], [address], [facility] 09/14/2020 17:49:58 10/14/19 20 Date of Last Pap Smear completed Taryn Alcantara null, [facility] 09/10/2020 15:42:57 10/06/19 18 spontaneous unassisted delivery, medical personnel present completed Not Available [facility] 03/15/2020 16:49:41 04/12/20 16 spontaneous unassisted delivery, medical personnel present completed Not Available [facility] 03/15/2020 16:49:41 Carpal tunnel surgery completed Taryn Alcantara null, [facility] 11/26/2021 11:15:17 Tubal Ligation completed Brigitte Sibley u null, [facility] 02/09/2023 15:19:47 Imaging Results None recorded. Procedure Notes None recorded. Medical Equipment None Reported. Allergies Allergen ID Allergen Name Allergen Category Reaction Reaction Severity Criticality Documentation Date Start Date Code Code System Note Provider Name and Address Organization Details Recorded Time [id number] Medicinal product containin g penicilli n and acting as antibacte rial agent (product) medicatio n nausea Not available Not available 03/15/2020 27051 05 SNOMED Hope Shittu null, [place] [facility] 3 15:19:11 789254 minocycli ne hydrochlo ride medicatio n Not available Not available Not available 03/15/2020 6979 RxNorm Not Available [facility] 0 14:57:43 756255 minocycli ne medicatio n rash Not available Not available 02/19/2021 6980 RxNorm Brigitte Ruiz [place], [place] [facility] 3 15:19:11 768576 house dust allergeni c extract environme nt,medica tion other Not available Not available 02/09/2023 10247 9 RxNorm Brigitte Ruiz [place], [place] - [facility] 3 15:19:11 Medications Name Sig Start Date [...] Updated DateTime 11/02/2023 162.56 cm 35.8 kg/m2 63239.09 g 122 mm[Hg] 82 mm[Hg] [facility] 15:22:04 Social History Question Answer Notes LastModified by Organizat ion Details LastModified Time Tobacco Smoking Status Never Smoker [facility] 09/10/2020 15:44:27 What Is Your Level Of Alcohol Consumption? 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 [email or web address] Information not available 11/26/2021 Sex: Female Functional [...] Recorded Time Tdap 08/07/2017 completed Not Available [facility] 16:01:28 Tdap 01/18/2016 completed Not [facility] 16:01:28 Past Encounters Encounter ID Performer Location Encounter Start Date Encounter Closed Date Diagnosis/Indication Diagnosis SNOMED-CT Code [id number] RAHUL ROYAL MD [id number] [facility] [address] [place] [address] [address] [place] [address] 11/02/2023 15:10:15 11/02/2023 16:32:10 Genital lichen sclerosus [id number] Health Concerns Section Related Observation LastModified by Organization Detai ls LastModified Time None Recorded Concern Status LastModified by Organization Details LastModified Time None Recorded Payers Encounter Date Sequence Insurance Name Policy Number Policy Agarwal Covered Member ID Agarwal Member ID Guarantor Name 11/02/2023 1 [employer] [id number] [place] Farah Cabrera [id number] Taryn Rees Notes Date Note Type Note Provider Name and Address Organization Details Recorded Time 11/02/2023 text/html HPI Notes: CUT ON LABIA pt states she has a cut on her labia for 2 months now. pt states it can come and go. pt has had laser hair removal, no cutting with a razor happened. jl/ma No hx of HPV, HSV or cold sores. No bleeding. Doesn't seem to be irritated with underwear. No bowel or bladder sx. [place] [address] [facility],[address], [place], [address], [facility] 11/03/2023 16:43:37 OBGyn Episode No OBEpisode recorded.
[2023-11-17 10:05] LABS: Mucus Urine Moderate; RBC Urine 50-100 (0-2); Squamous Epithelial Cell Urine Many (None-Few)
[2023-11-17 10:16] LABS: Chloride* 105 mmol/L (96-114); Potassium* 3.7 mmol/L (3.6-5.1); Sodium* 139 mmol/L (135-149)
[2023-11-17 10:19] LABS: Anion Gap 10 mEq/L (7-15); Blood Urea Nitrogen* 21 mg/dL (5-24); Carbon Dioxide* 24 mmol/L (20-32); Creatinine* 0.8 mg/dL (0.5-1.5); Est. Creatinine Clearance* 79.91; Estimated Glomerular Filt Rate 95 ml/min
[2023-11-17 10:20] LABS: Calcium* 9.4 mg/dL (8.4-10.6); Glucose* 137 mg/dL (60-115)
[2023-11-17] MEDS: HYDROmorphone 0.5 mg/0.5 ml inj IVP (11:06)
[2023-11-17] MEDS: ONDANSETRON 2 MG/ML inj 4 MG IVP (11:15)
[2023-11-17 11:30] VITALS: BP 151/98; PULSE 67; RESP 18; O2SAT 96
[2023-11-17] MEDS: OxyCODONE/APAP 5-325 TABLET 1 TAB PO (12:12)
[2023-11-17] MEDS: TAMSULOSIN HCL 0.4 MG CAPSULE PO (12:18)
== END 2023-11-17 12:45 | disposition home or self-care (01) ==
PROVIDERS: Emergency Provider Emergency Medicine
DX: N20.0 Calculus of kidney (principal)
CPT/HCPCS: 36415; 74176; 80048; 81001; 81025; 85025; 96374; 96375; 96376; 99283; 99284; A9270; J1170; J1885; J2405